=== PATIENT | female | born 1990 | race Caucasian/White ===

== ENCOUNTER 2017-05-16 16:42 | Inpatient (IN) | payer BC, OTHER ==
[2017-05-16 16:59] VITALS: BMI 36.1
--- NOTE | 2017-05-16 19:00 | PDOC ---
History of Present Illness - General Chief Complaint: Vaginal Sxs Stated Complaint: ABCESS History Source: Patient Exam Limitations: No Limitations - History of Present Illness Initial Comments: 05/16/17 18:54 Patient is a 26-year-old female, 7 months history of Bartholin's cyst presents with pain to vulva which started yesterday. Patient complaining of chills, tactile fever, patient reports that this pain that she is experiencing now is worse than the initial episode when she was drained. No urinary pain, no hematuria, no back pain. Past Medical History: Denies. Allergies: No known allergies Medications: None Family History: Non-contributory Social History: Denies smoking, alcohol use, or IVDU Vital signs on arrival are notable for pulse of 95. Review of Systems GENERAL/CONSTITUTIONAL: Tactile fever and chills. No weakness. No weight change. HEAD, EYES, EARS, NOSE AND THROAT: No change in vision. No ear pain or discharge. No sore throat. CARDIOVASCULAR: No chest pain or shortness of breath. RESPIRATORY: No cough, wheezing, or hemoptysis. GASTROINTESTINAL: No nausea, vomiting, diarrhea or constipation. No rectal bleeding. GENITOURINARY: No dysuria, frequency, or change in urination. GENITALIA: Right labia edema, visible inflammed bartholin cyst MUSCULOSKELETAL: No joint or muscle swelling or pain. No neck or back pain. SKIN AND BREASTS: No rash or easy bruising. NEUROLOGIC: No headache, vertigo, loss of consciousness, or loss of sensation. PSYCHIATRIC: No depression or anxiety. ENDOCRINE: No increased thirst. No abnormal weight change. HEMATOLOGIC/LYMPHATIC: No anemia, easy bleeding, or history of blood clots. ALLERGIC/IMMUNOLOGIC: No hives or skin allergy. No latex allergy. Physical Exam: GENERAL: The patient is awake, alert, and fully oriented, in no acute distress. HEAD: Normal with no signs of trauma. EYES: Pupils equal, round and reactive to light, extraocular movements intact, sclera anicteric, conjunctiva clear. ENT: Ears normal, nares patent, oropharynx clear without exudates. Moist mucous membranes. No uvula deviation NECK: Normal range of motion, supple without lymphadenopathy, JVD, or masses. LUNGS: Breath sounds equal, clear to auscultation bilaterally. No wheezes, and no crackles. HEART: Regular rate and rhythm, normal S1 and S2 without murmur, rub or gallop. ABDOMEN: Soft, nontender, normoactive bowel sounds. No guarding, no rebound. No masses. No bruising or abrasions GENITALIA: Large, inflamed right sided Bartholin's cyst. Equivalent to size of a golf ball. Surrounding area indurated, malodorous RECTAL : Guaiac negative, normal rectal tone. MUSCULOSKELETAL: Normal range of motion, no edema. No clubbing or cyanosis. No cords, erythema, or tenderness. No CVA Tenderness with fist. NEUROLOGICAL: Cranial nerves II through XII grossly intact. Normal speech, normal gait. SKIN: Warm, Dry, normal turgor, no rashes or lesions noted. 05/16/17 18:55 Past History - Past Medical History Allergies/Adverse Reactions: Allergies Allergy/AdvReac Type Severity Reaction Status Date / Time No Known Allergies Allergy Verified 05/16/17 17:01 Home Medications: Ambulatory Orders Cephalexin [Keflex] 500 mg PO BID #20 capsule 05/17/17 Ibuprofen [Motrin -] 600 mg PO TID #21 tablet 05/17/17 Thyroid Disease: No - Suicide/Smoking/Psychosocial Hx Smoking History: Never smoked Have you smoked in the past 12 months: No Information on smoking cessation initiated: No Hx Alcohol Use: No Drug/Substance Use Hx: No Substance Use Type: None *Physical Exam - Vital Signs Last Vital Signs Temp Pulse Resp BP Pulse Ox 98.5 F 95 H 18 124/60 100 05/16/17 16:55 05/16/17 16:55 05/16/17 16:55 05/16/17 16:55 05/16/17 16:55 ED Treatment Course - LABORATORY CBC & Chemistry Diagram: 05/19/17 08:00 05/19/17 08:00 Medical Decision Making - Medical Decision Making 05/16/17 19:00 A/P: Patient with large Bartholin's cyst, sent to main emergency department for higher level of care, patient stable for transfer. *DC/Admit/Observation/Transfer Diagnosis at time of Disposition: Vaginal cuff cellulitis, Abscess - Discharge Dispostion Disposition: HOME Condition at time of disposition: Stable - Prescriptions
--- NOTE | 2017-05-16 20:33 | PDOC ---
Attending Attestation - Resident Resident Name: Leela Glovern - HPI HPI: 05/16/17 20:27 Pt comes with 1 day of increased pain in her labia where she has a bartholin's cyst. Pt has had one in the past. Pt doesn't recall what side it was on , so it has likely been months ago. - Physicial Exam PE: 05/16/17 20:33 Pt has a labial abscess which is fluctuant on the right labia with extension to the right groin and right trigone area. Pt has exquisite tenderness of the area. Vaginal cellulitis 05/16/17 20:51 Pt is febrile to the touch. - Medical Decision Making 05/16/17 23:02 Pt will be admitted to the hospitalist; Dr. Magdaleno is aware of the patient and will come to see the patient to drain possible cyst/abscess tomorrow. Pt will be treated with IV clindamycin for the cellulitis. Labs done. Analgesia with morphine and tylenol for fever.
[2017-05-16] MEDS ORDERED: LIDOCAINE 1%/EPI 1:100000 (20 ML MULTI DOSE VIAL) ONE (20:36)
--- NOTE | 2017-05-16 20:41 | PDOC ---
History of Present Illness <Joan Carranza - Last Filed: 05/17/17 01:50> - General History Source: Patient Exam Limitations: No Limitations - History of Present Illness Initial Comments: Patient is a 26 year old female with history of a vaginal abscess and recent IUD insertion presenting with one day of right-sided vaginal pain. The pain is severe and constant. Endorses fever, chills, SHIPMAN, nausea, vaginal itching, discharge and burning on urination. Patient endorses a Bartholin cyst 10 months ago while that was drained, unable to remember which side. States this time is worse and she is unable to ambulate d/t pain. Denies being , has IUD and is not currently breast feeding. Denies shortness of breath, chest pain, abdominal pain, vomiting, diarrhea and dizziness. No PCP <Dashwan Glover - Last Filed: 05/21/17 03:31> - General Chief Complaint: Vaginal Sxs Stated Complaint: ABCESS Time Seen by Provider: 05/16/17 19:28 Past History <Joan Carranza - Last Filed: 05/17/17 01:50> - Past Medical History Thyroid Disease: No - Suicide/Smoking/Psychosocial Hx Smoking History: Never smoked Have you smoked in the past 12 months: No Information on smoking cessation initiated: No Hx Alcohol Use: No Drug/Substance Use Hx: No Substance Use Type: None <Dashawn Glover - Last Filed: 05/21/17 03:31> - Past Medical History Allergies/Adverse Reactions: Allergies Allergy/AdvReac Type Severity Reaction Status Date / Time No Known Allergies Allergy Verified 05/16/17 17:01 Home Medications: Ambulatory Orders Cephalexin [Keflex] 500 mg PO BID #20 capsule 05/17/17 Ibuprofen [Motrin -] 600 mg PO TID #21 tablet 05/17/17 Review of Systems - Review of Systems Able to Perform ROS?: Yes Comments:: GEN: Endorses fever, chills; Denies recent illness HEENTM: Denies sore throat, neck pain, changes in vision, changes in hearing, ear pain, tinnitus Respiratory: Denies cough, wheezing, shortness of breath Cardiac: Denies chest pain, palpitations, lightheadedness, diaphoresis ABD/GI: Endorses nausea; Denies abdominal pain, vomiting, diarrhea, constipation : Endorses vaginal pain, dysuria, vaginal itching, burning on urination; Denies increased frequency of urination Musculoskeletal: Denies pain and swelling of muscles and joints Integumentary: Endorses vaginal redness; Denies additional rashes or bruises Neurological: Endorses SHIPMAN; Denies weakness, dizziness, loss of consciousness, tingling, numbness Hematologic/Lymphatic: Denies anemia, easy bleeding, history of blood clots. All Other Systems Reviewed and Negative Is the patient limited Malaysian proficient: No <Dashawn Glover - Last Filed: 05/21/17 03:31> *Physical Exam - Vital Signs Last Vital Signs Temp Pulse Resp BP Pulse Ox 102.0 F H 95 H 18 124/60 100 05/16/17 20:25 05/16/17 16:55 05/16/17 16:55 05/16/17 16:55 05/16/17 16:55 <Joan Carranza - Last Filed: 05/17/17 01:50> - Vital Signs Last Vital Signs Temp Pulse Resp BP Pulse Ox 98.5 F 95 H 18 124/60 100 05/16/17 16:55 05/16/17 16:55 05/16/17 16:55 05/16/17 16:55 05/16/17 16:55 - Physical Exam Comments: GENERAL: AAOx3, obese, nourished and generally well appearing, NAD HEAD: NCAT EYES: PERRLA, EOMI, sclera anicteric, conjunctiva clear ENT: Auricles normal inspection, hearing grossly normal, nares patent, no nasal discharge, no congestion, oropharynx clear without exudates, MMM NECK: supple, normal ROM, no LAD, no JVD, no masses RESP: speaking in full sentences, lungs CTAB, symmetrical chest expansion, no respiratory distress HEART: RRR, normal S1-S2, no MRG, peripheral pulses normal and equal bilaterally ABDOMEN: soft, NTND, nlBSx4, no guarding, no rebound, no masses PELVIC: external exam significant for right-sided swelling and ttp of the labia majora with erythema of the labia majora and mons pubis. MUSCULOSKELETAL: no CVA Tenderness EXTREMITIES: normal inspection, moving all extremities, full ROM, strength 5/5, sensation grossly intact NEUROLOGICAL: CN II-XII grossly intact, normal speech, gait unassessed, no focal sensorimotor deficits SKIN: warm, dry, normal turgor, no rashes or lesions noted. <Dashawn Glover - Last Filed: 05/21/17 03:31> ED Treatment Course - LABORATORY CBC & Chemistry Diagram: 05/16/17 21:20 05/16/17 21:20 - ADDITIONAL ORDERS Additional order review: Laboratory Results 05/16/17 05/16/17 21:20 21:20 Sodium 134 L Potassium 3.7 Chloride 101 Carbon Dioxide 25 Anion Gap 8 BUN 7 Creatinine 0.5 L Creat Clearance w eGFR > 60 Random Glucose 87 Calcium 8.2 L Total Bilirubin 0.8 AST 18 ALT 24 Alkaline Phosphatase 111 Total Protein 6.8 Albumin 3.2 L Blood Type O POSITIVE Antibody Screen Negative 05/16/17 21:20 RBC 4.64 MCV 77.9 L MCHC 32.7 RDW 13.2 MPV 9.9 Neutrophils % No Result Required. Lymphocytes % No Result Required. - Medications Given in the ED: ED Medications Discontinued Medications Generic Name Dose Route Start Last Admin Trade Name Althea PRN Reason Stop Dose Admin Acetaminophen 650 mg 05/16/17 20:54 05/16/17 21:33 Tylenol - PO 05/16/17 20:55 650 mg ONCE ONE Administration Clindamycin HCl 600 mg 05/16/17 21:05 05/16/17 22:16 Cleocin - PO 05/16/17 21:06 600 mg ONCE ONE Administration Sodium Chloride 1,000 mls @ 1,000 mls/hr 05/16/17 20:54 05/16/17 21:33 Normal Saline - IV 05/16/17 21:53 1,000 mls/hr ASDIR STA Administration Gentamicin Sulfate/Sodium Chloride 100 mls @ 100 mls/hr 05/16/17 21:09 22:17 Garamycin 80 Mg Premixed Ivpb - IVPB 05/16/17 22:08 100 mls/hr ONCE ONE Administration Vancomycin HCl 1,000 mg/ 250 mls @ 250 mls/hr 05/16/17 23:42 05/17/17 00:22 Dextrose IVPB 05/17/17 00:41 250 mls/hr ONCE ONE Administration Protocol Morphine Sulfate 2 mg 05/16/17 20:58 05/16/17 21:34 Morphine Injection - IVPUSH 05/16/17 20:59 2 mg ONCE ONE Administration Morphine Sulfate 2 mg 05/16/17 23:54 05/17/17 00:22 Morphine Injection - IVPUSH 05/16/17 23:55 2 mg ONCE ONE Administration Morphine Sulfate 2 mg 05/17/17 00:09 05/17/17 00:50 Morphine Injection - IVPUSH 05/17/17 00:10 Not Given ONCE ONE <Joan Carranza - Last Filed: 05/17/17 01:50> - LABORATORY CBC & Chemistry Diagram: 05/19/17 08:00 05/19/17 08:00 <Dashawn Glover - Last Filed: 05/21/17 03:31> Medical Decision Making - Medical Decision Making 26 year old female with vaginal pain and swelling ands overlying erythema on on the mons pubis and a subjective fever, ddx includes but not limited to bartholin cyst, vaginal abscess, cellulites pain management abx preop labs fluids Consult central service tech +/- admission 05/16/17 21:22 Rectal temperature 102.2, blood cultures ordered 05/16/17 22:51 CBC WBC 17.1 K/mm3 (4.0-10.0) H 05/16/17 21:20 RBC 4.64 M/mm3 (3.60-5.2) 05/16/17 21:20 Hgb 11.8 GM/dL (10.7-15.3) 05/16/17 21:20 Hct 36.2 % (32.4-45.2) 05/16/17 21:20 MCV 77.9 fl (80-96) L 05/16/17 21:20 MCH 25.5 pg (25.7-33.7) L 05/16/17 21:20 MCHC 32.7 g/dl (32.0-36.0) 05/16/17 21:20 RDW 13.2 % (11.6-15.6) 05/16/17 21:20 Plt Count 195 K/MM3 (134-434) 05/16/17 21:20 MPV 9.9 fl (7.5-11.1) 05/16/17 21:20 Total Counted 100 05/16/17 21:20 Neutrophils % No Result Required. 05/16/17 21:20 Neutrophils % (Manual) 76 % (42.8-82.8) 05/16/17 21:20 Band Neuts % (Manual) 5 % (0-10) 05/16/17 21:20 Lymphocytes % No Result Required. 05/16/17 21:20 Lymphocytes % (Manual) 10 % (8-40) 05/16/17 21:20 Monocytes % (Manual) 7 % (3.8-10.2) 05/16/17 21:20 Eosinophils % (Manual) 2 % (0-4.5) 05/16/17 21:20 Platelet Estimate Adequate (NORMAL) 05/16/17 21:20 Morphology Comment 05/16/17 21:20 reviewed CMP Sodium 134 mmol/L (136-145) L 05/16/17 21:20 Potassium 3.7 mmol/L (3.5-5.1) 05/16/17 21:20 Chloride 101 mmol/L (98-107) 05/16/17 21:20 Carbon Dioxide 25 mmol/L (21-32) 05/16/17 21:20 Anion Gap 8 (8-16) 05/16/17 21:20 BUN 7 mg/dL (7-18) 05/16/17 21:20 Creatinine 0.5 mg/dL (0.55-1.02) L 05/16/17 21:20 Creat Clearance w eGFR > 60 (>60) 05/16/17 21:20 Random Glucose 87 mg/dL (74-106) 05/16/17 21:20 Calcium 8.2 mg/dL (8.5-10.1) L 05/16/17 21:20 Total Bilirubin 0.8 mg/dL (0.2-1.0) 05/16/17 21:20 AST 18 U/L (15-37) 05/16/17 21:20 ALT 24 U/L (12-78) 05/16/17 21:20 Alkaline Phosphatase 111 U/L (45-117) 05/16/17 21:20 Total Protein 6.8 g/dl (6.4-8.2) 05/16/17 21:20 Albumin 3.2 g/dl (3.4-5.0) L 05/16/17 21:20 Reviewed Patient is febrile with leukocytosis no primary followup and unable to ambulate. Needs admission for treatment of cellulites and eventual drainage of abscess Dr. Magdaleno contacted and will follow up with patient tomorrow. [facility] contacted regarding admission <Dashawn Gloevr - Last Filed: 05/21/17 03:31> *DC/Admit/Observation/Transfer - Discharge Dispostion Admit: Yes <Joan Carranza - Last Filed: 05/17/17 01:50> <Dashawn Glover - Last Filed: 05/21/17 03:31> Diagnosis at time of Disposition: Vaginal cuff cellulitis, Abscess - Discharge Dispostion Disposition: HOME Condition at time of disposition: Stable - Prescriptions
[2017-05-16] MEDS ORDERED: ACETAMINOPHEN 325 MG TABLET (FP) PO ONE (20:54)
[2017-05-16] MEDS ORDERED: SODIUM CHLORIDE 1,000 ML IV STA (20:54)
[2017-05-16] MEDS ORDERED: morphine CARPU-JECT 2 MG/1 ML DISP.SYRIN IVPUSH ONE ×2 (20:58→23:54)
[2017-05-16] MEDS ORDERED: CLINDAMYCIN HCL 300 MG CAPSULE PO ONE (21:05)
[2017-05-16] MEDS ORDERED: GENTAMICIN 80 MG PREMIXED IVPB 100 ML IVPB ONE ×2 (21:09→22:08)
[2017-05-16] MEDS ORDERED: ACETAMINOPHEN 325 MG TABLET (FP) ONE (21:12)
[2017-05-16] MEDS ORDERED: morphine CARPU-JECT 2 MG/1 ML DISP.SYRIN ONE (21:12)
[2017-05-16 21:31] LABS: MCH 25.5 pg (25.7-33.7); MCHC 32.7 g/dl (32.0-36.0); MEAN CELL VOLUME 77.9 fl (80-96); MEAN PLT VOLUME 9.9 fl (7.5-11.1); PLATELET COUNT 195 K/MM3 (134-434); RDW 13.2 % (11.6-15.6); WHITE BLOOD COUNT 17.1 K/mm3 (4.0-10.0)
[2017-05-16 21:55] LABS: ALBUMIN 3.2 g/dl (3.4-5.0); ANION GAP 8 (8-16); BILIRUBIN,TOTAL 0.8 mg/dL (0.2-1.0); CALCIUM 8.2 mg/dL (8.5-10.1); CO2 25 mmol/L (21-32); CREATININE 0.5 mg/dL (0.55-1.02); GLUCOSE,RANDOM 87 mg/dL (74-106); SGOT/AST 18 U/L (15-37); SGPT/ALT 24 U/L (12-78); TOT PROT 6.8 g/dl (6.4-8.2)
[2017-05-16 21:56] LABS: ALK PHOS 111 U/L (45-117)
[2017-05-16 21:57] LABS: PLATELET ESTIMATE ADEQUATE (NORMAL); TOTAL CELLS COUNTED 100
[2017-05-16] MEDS ORDERED: CLINDAMYCIN HCL 150 MG CAPSULE (FP) ONE (22:09)
[2017-05-16] MEDS ORDERED: VANCOMYCIN 1,000 MG in DEXTROSE 5%-WATER - 250 ML IVPB ONE (23:42)
[2017-05-16] MEDS ORDERED: VANCOMYCIN 1 GRAM (PRE-DOCKED) 250 ML IVPB ONE (23:52)
[2017-05-17] MEDS ORDERED: morphine CARPU-JECT 2 MG/1 ML DISP.SYRIN IVPUSH ONE (00:09)
[2017-05-17] MEDS ORDERED: morphine CARPU-JECT 2 MG/1 ML DISP.SYRIN ONE (00:12)
--- NOTE | 2017-05-17 01:41 | PN ---
Teaching Attending Note Name of Resident: Arlin Epstein ATTENDING PHYSICIAN STATEMENT I saw and evaluated the patient. CHart, data, imaging reviewed. I reviewed the resident's note and discussed the case with the resident. I agree with the resident's findings and plan as documented. SUBJECTIVE: 26-year-old female, 5 months, with PMHx of Bartholin cyst which became infected about one yr ago, now returns with right labial swelling and pain for the past 1-2 days. She reports episode of fever and chills. Thinks that she may have had ingrown hair. S/p vancomycin, gentamicin, and clindamycin in ER. Reports negative HIV test during last . OBJECTIVE: Last Vital Signs Temp Pulse Resp BP Pulse Ox 102.0 F H 95 H 18 124/60 100 05/16/17 20:25 05/16/17 16:55 05/16/17 16:55 05/16/17 16:55 05/16/17 16:55 heent -no sinus tenderness, no scleral pallor neck -supple, no masses cv s1+s2+ RRR chest- cta b/l abdomen -right and left lower quadrant tenderness ext - no edema noted Abnormal Lab Results 05/16/17 05/16/17 21:20 21:20 WBC 17.1 H MCV 77.9 L MCH 25.5 L Sodium 134 L Creatinine 0.5 L Calcium 8.2 L Albumin 3.2 L ASSESSMENT AND PLAN: #Sepsis 2/2 to infected bartholin cyst and surrounding cellulitis. Should r/o endometritis S/p vancomycin, gentamicin, and clindamycin in ER. -admit to med/surg -blood cx x2 -lactate level -IV fluid hydration -vancomycin 1g iv q12hrs -unasyn 3g iv q6hrs -IVF hydration -OBGYN consult #R/o GC/chlamydia as patient c/o vaginal yellowish discharge -send urine GC/chlamydia NAAT -Pelvic U/S to evaluate for PID -UA, urine cx -HIV serology #DVT ppx -SCDs #diet regular diet
[2017-05-17] MEDS ORDERED: ACETAMINOPHEN 325 MG TABLET (FP) PO ONE (02:33)
[2017-05-17] MEDS ORDERED: ACETAMINOPHEN 325 MG TABLET (FP) ONE (02:34)
--- NOTE | 2017-05-17 03:03 | HP ---
CHIEF COMPLAINT: bartholin's cyst PCP: none HISTORY OF PRESENT ILLNESS: This is a 26 year old female who presents to the hospital complaining of swelling and pain in her labia on right side that started yesterday. She reports that yesterday her complaints were associated with nausea and headache. The pain in severe, located in vaginal and pubic area, constant and she also experience itching and dysuria. The pt has fever. She states that recently she had IUD inserted and she notivced more vaginlal discharge. She denies recent travel, sick contacts, animal contacts. She had Bartholin's cyst 10 months ago that was drained and she had catheter left after the procedure. This time she states that her infection is much worse. She denies SOB, chest pain, vomiting, diarhea, dizziness. ER course was notable for: (1)WBC 17 (2)Fever-rectal 102 (3)Gentamycin, Clindamycin and Vanco Recent Travel: PAST MEDICAL HISTORY: Bartholin's cyst 10 months ago PAST SURGICAL HISTORY: c section in aug 2016 Social History: Smoking:no Alcohol:occasionally Drugs: no Family History: Father: healthy Mother: healthy Allergies No Known Allergies Allergy (Verified 05/16/17 17:01) HOME MEDICATIONS: Home Medications Medication Instructions Recorded NK [No Known Home Medication] 05/16/17 REVIEW OF SYSTEMS CONSTITUTIONAL: Absent: fever, chills, diaphoresis, generalized weakness, malaise, loss of appetite, weight change HEENT: Absent: rhinorrhea, nasal congestion, throat pain, throat swelling, difficulty swallowing, mouth swelling, ear pain, eye pain, visual changes CARDIOVASCULAR: Absent: chest pain, syncope, palpitations, irregular heart rate, lightheadedness , peripheral edema RESPIRATORY: Absent: cough, shortness of breath, dyspnea with exertion, orthopnea, wheezing, stridor, hemoptysis GASTROINTESTINAL:abdominal pain, Absent: abdominal distension, nausea, vomiting, diarrhea, constipation, melena, hematochezia GENITOURINARY: dysuria, genital pain Absent: frequency, urgency, hesitancy, hematuria, flank pain, MUSCULOSKELETAL: Absent: myalgia, arthralgia, joint swelling, back pain, neck pain SKIN: Absent: rash, itching, pallor HEMATOLOGIC/IMMUNOLOGIC: Absent: easy bleeding, easy bruising, lymphadenopathy, frequent infections ENDOCRINE: Absent: unexplained weight gain, unexplained weight loss, heat intolerance, cold intolerance NEUROLOGIC: Absent: headache, focal weakness or paresthesias, dizziness, unsteady gait, seizure, mental status changes, bladder or bowel incontinence PSYCHIATRIC: Absent: anxiety, depression, suicidal or homicidal ideation, hallucinations. PHYSICAL EXAMINATION GENERAL: Awake, alert, and fully oriented, in no acute distress. HEAD: Normal with no signs of trauma. EYES: Pupils equal, round and reactive to light, extraocular movements intact, sclera anicteric, conjunctiva clear. No lid lag. EARS, NOSE, THROAT: Ears normal, nares patent, oropharynx clear without exudates. Moist mucous membranes. NECK: Normal range of motion, supple without lymphadenopathy, JVD, or masses. LUNGS: Breath sounds equal, clear to auscultation bilaterally. No wheezes, and no crackles. No accessory muscle use. HEART: Regular rate and rhythm, normal S1 and S2 without murmur, rub or gallop. ABDOMEN: Obese, soft, tender in lower abdomen, + guarding in lower abdomen, not distended, normoactive bowel sounds, no rebound, no masses. No hepatomegaly or splenomegaly. MUSCULOSKELETAL: Normal range of motion at all joints. No bony deformities or tenderness. No CVA tenderness. UPPER EXTREMITIES: 2+ pulses, warm, well-perfused. No cyanosis. No clubbing. No peripheral edema. LOWER EXTREMITIES: 2+ pulses, warm, well-perfused. No calf tenderness. No peripheral edema. NEUROLOGICAL: Cranial nerves II-XII intact. Normal speech. Normal gait. PSYCHIATRIC: Cooperative. Good eye contact. Appropriate mood and affect. SKIN: Warm, dry, normal turgor, no rashes or lesions noted, normal capillary refill. ASSESSMENT/PLAN: This is a 26 year old female whith a PMH of BArtholin's cyst who presents to the hospital complaining of swelling and pain in her genital area. She is admitted for sepsis due Bartholin cyst/cellulitis. sepsis due Bartholin cyst/cellulitis. -sepsis protocol initiated -urine cultures, blood cultures, UA -IVF -Gentamycin, Vancoomycin and Clindamycin given in Ed -we gave her Unasyn 3 q6h and Vancomycin 1g -consulted ID -will follow labwork -OBGYN consulted Lower abdominal pain -r/o endometritis, ovarian cyst., PUD -keep NPO for now -ordered Chlamydia, Gonnorhea, HIV Leukocytosis: WBC 17, due to sepsis will monitor DVT PPX: -Heparin SQ SCDs F/E/N NS/no changes/NPO Discposition: med surg Visit type - Emergency Visit Emergency Visit: Yes ED Registration Date: 05/17/17 Care time: The patient presented to the Emergency Department on the above date and was hospitalized for further evaluation of their emergent condition. - New Patient This patient is new to me today: Yes Date on this admission: 05/17/17 - Critical Care Critical Care patient: No
[2017-05-17 04:27] LABS: BASOPHIL 0.3 % (0-2.0); EOSINOPHIL 3.3 % (0-4.5); MCH 25.5 pg (25.7-33.7); MCHC 32.8 g/dl (32.0-36.0); MEAN CELL VOLUME 77.9 fl (80-96); MEAN PLT VOLUME 9.7 fl (7.5-11.1); NEUTROPHILS 82.3 % (42.8-82.8); PLATELET COUNT 175 K/MM3 (134-434); RDW 13.1 % (11.6-15.6); WHITE BLOOD COUNT 14.2 K/mm3 (4.0-10.0)
[2017-05-17] MEDS: AMPICILLIN NA/SULBACTAM NA 3 GM in SODIUM CHLORIDE 100 ML IVPB SCH ×4 (05:00→20:56)
[2017-05-17 05:19] LABS: ALBUMIN 2.8 g/dl (3.4-5.0); ALK PHOS 112 U/L (45-117); ANION GAP 11 (8-16); BILIRUBIN,TOTAL 0.7 mg/dL (0.2-1.0); CALCIUM 8.1 mg/dL (8.5-10.1); CO2 22 mmol/L (21-32); CREATININE 0.4 mg/dL (0.55-1.02); GLUCOSE,RANDOM 102 mg/dL (74-106); SGOT/AST 21 U/L (15-37); SGPT/ALT 25 U/L (12-78); TOT PROT 5.9 g/dl (6.4-8.2)
--- NOTE | 2017-05-17 07:10 | CON.OBG ---
Consult Consult Specialty:: SPANISH INSTRUCTOR Reason for Consultation:: RIGHT BARTHOLINS - History of Present Illness Chief Complaint: 26 Y/O WITH RIGHT BARTHOLINS COMES WITH INCREASING PIAN. States that over last 2 days has been having increasing pain. Has had a barthloins about 10 months ago. Arrived in ER with pain and white count of 17k and now down to 14 k. Pt is on abx and with dropping white count and afebrile will admit fro drainage. History of Present Illness: see above - History Source History Provided By: Patient Limitations to Obtaining History: No Limitations - Past Medical History SLITTER SERVICE AND SETTER: No: Alzheimer's, CVA, Dementia, Migraine, Multiple Sclerosis, Peripheral Neuropathy, Parkinson's, Seizure, Syncope, TIA, Vertigo, Other Pulmonary: No: Asthma, Bronchitis, Cancer, COPD, O2 Dependent, Pneumonia, Previously Intubated, Pulmonary Embolus, Pulmonary Fibrosis, Sleep Apnea, Other Gastrointestinal: No: Ascites, Cancer, Constipation, Crohn's Disease, Diverticulitis, Diverticulosis, Esophageal Varices, Gastritis, GERD, GI Bleed, Hemorrhoids, Hiatal Hernia, Inflamatory Bowel Disease, Irritable Bowel Disease, Pancreatitis, Peptic Ulcer Disease, Ulcerative Colitis, Other Hepatobiliary: No: Cirrhosis, Cholelithiasis, Cholecystitis, Choledocholithiasis , Hepatitis A, Hepatitis B, Hepatitis C, Other Renal/: No: Renal Failure, Renal Inusuff, BPH, Cancer, Hematuria, Hemodialysis , Neurogenic Bladder, Renal Calculi, UTI, Other ...: No Heme/Onc: No: Anemia, B12 Deficiency, Bleeding Disorder, Cancer, Current Chemotherapy, Current Radiation Therapy, Hemochromatosis, Hypercoaguable State, Myeloproliferative Synd, Sickle Cell Disease, Sickle Cell Trait, Thrombocytopenia, Other Infectious Disease: No: AIDS, C-Diff, Herpes Zoster, HIV, MRSA, STD's, Tuberculosis, VREF, Other Psych: No: Addictions, Anxiety, Bipolar, Depression, Panic, Psychosis, Schizophrenia, Other - Past Surgical History Past Surgical History: No: None, AAA Repair, AICD, Amputation, Appendectomy, Arthrosocopy, AV Fistula/Graft, Bariatric Surgery, Breast Biopsy, Bypass, CABG, Carotid Endarterectomy, Cataract Removal, Cholecystectomy, Colectomy, Colonoscopy, Colostomy, Craniotomy, , Cystectomy, Hernia Repair, Hysterectomy, Ileal Conduit, Ileosotomy, Joint Replacement, Kidney Transplant, Laminectomy, Liver Transplant, Mastectomy, Nephrectomy, Oopherectomy, Orchiectomy, Permanent Pacemaker, Prostatectomy, Splenectomy, Stent, Thoracotomy , TURP, Tonsillectomy, Tubal Ligation, Upper Endoscopy, Valve Replacement, Vasectomy, Vein Stripping/Ligation - Alcohol/Substance Use Hx Alcohol Use: No History of Substance Use: denies: None, Cocaine, Heroin, Marijuana, Prescription , Tranquilizers - Smoking History Smoking history: Never smoked Have you smoked in the past 12 months: No Home Medications - Allergies Allergies/Adverse Reactions: Allergies Allergy/AdvReac Type Severity Reaction Status Date / Time No Known Allergies Allergy Verified 05/16/17 17:01 - Home Medications Home Medications: Ambulatory Orders NK [No Known Home Medication] 05/16/17 Review of Systems - Review of Systems Constitutional: reports: No Symptoms Eyes: reports: No Symptoms HENT: reports: No Symptoms Neck: reports: No Symptoms Cardiovascular: reports: No Symptoms Respiratory: reports: No Symptoms Gastrointestinal: reports: No Symptoms Genitourinary: reports: No Symptoms Breasts: reports: No Symptoms Reported Musculoskeletal: reports: No Symptoms Integumentary: reports: No Symptoms Neurological: reports: No Symptoms Endocrine: reports: No Symptoms Hematology/Lymphatic: reports: No Symptoms Psychiatric: reports: No Symptoms Physical Exam-SPANISH INSTRUCTOR Vital Signs: Vital Signs Temperature 98.8 F 05/17/17 06:00 Pulse Rate 104 H 05/17/17 06:00 Respiratory Rate 18 05/17/17 06:00 Blood Pressure 101/57 05/17/17 06:00 O2 Sat by Pulse Oximetry (%) 96 05/17/17 05:17 Constitutional: Yes: Well Nourished Eyes: Yes: WNL HENT: Yes: WNL Neck: Yes: WNL Cardiovascular: Yes: WNL Respiratory: Yes: WNL Gastrointestinal: Yes: WNL (3-4 cm right bartholins cyst with rt labial induration) Musculoskeletal: Yes: WNL Extremities: No: WNL, Amputation, Calf Tenderness, Cold, Cool, Cyanosis, Deformity, Delayed Capillary Refill, Erythema, External Rotation, Internal Rotation, Pallor, Shortened, Other Labs: CBC, BMP 05/17/17 04:08 05/17/17 04:08 Assessment/Plan as above continue abx oob prep for OR
[2017-05-17 07:11] LABS: INR 1.08 (0.82-1.09); PROTHROMBIN TIME (PATIENT) 12.2 SEC (9.98-11.88)
[2017-05-17] MEDS ORDERED: morphine CARPU-JECT 2 MG/1 ML DISP.SYRIN IVPUSH PRN (07:15)
[2017-05-17] MEDS ORDERED: morphine CARPU-JECT 10 MG/1 ML DISP.SYRIN ONE (07:22)
[2017-05-17 07:28] LABS: HIV 1 & 2 AB NEGATIVE; HIV 1 AGp24 NEGATIVE
[2017-05-17] MEDS ORDERED: PROPOFOL 20 ML ONE (09:39)
[2017-05-17] MEDS ORDERED: MIDAZOLAM HCL 2 MG/2 ML SINGLE DOSE VIAL ONE (09:39)
[2017-05-17] MEDS ORDERED: HEPARIN NA (PORCINE) 5,000 UNITS/ML 1ML VIAL SQ SCH (10:00)
[2017-05-17] MEDS ORDERED: ONDANSETRON 4 MG/2 ML VIAL IVPUSH PRN (10:10)
--- NOTE | 2017-05-17 11:02 | EKG ---
Test Reason : Blood Pressure : / mmHG Vent. Rate : 102 BPM Atrial Rate : 102 BPM P-R Int : 152 ms QRS Dur : 088 ms QT Int : 346 ms P-R-T Axes : 063 072 027 degrees QTc Int : 450 ms SINUS TACHYCARDIA OTHERWISE NORMAL ECG NO PREVIOUS ECGS AVAILABLE Confirmed by JENNIFER SHELBY MD ([id number]) on 05/17/2017 11:02:17 AM Referred By: Confirmed By:JENNIFER SHELBY MD
[2017-05-17] MEDS: LACTATED RINGERS SOLUTION 1,000 ML IV SCH ×2 (11:48→16:00)
--- NOTE | 2017-05-17 13:11 | PN ---
Progress Note (short form) - Note Progress Note: ID Consult dictated S/P I&D Bartholin cyst Cellulitis R labia/ suprapubic area Fever/ leukocytosis Pending c/s empiric unasyn/ vancomycin
[2017-05-17] MEDS: oxyCODONE HCL 5 MG TABLET PO PRN ×3 (13:16→20:53)
--- NOTE | 2017-05-17 13:32 | CONS ---
DATE OF CONSULTATION: 05/17/2017 The patient is a 26-year-old healthy female evaluated for fever and leukocytosis. She presented to the hospital with complaints of right labial pain, fever, and chills. She was found to have a right labial abscess. The patient was taken to the operating room, where incision and drainage was performed of a Bartholin cyst. Her course was complicated by fever to 102 and white blood cell count of 17,000. At the present time, she complains of right labial and suprapubic pain. She denies history of serious soft tissue infection requiring hospitalization or history of MRSA infection. PAST MEDICAL HISTORY: Positive for Bartholin cyst 10 months ago, which did not require surgical drainage; history of IUD placement. PAST SURGICAL HISTORY: Status post section. No known allergies. MEDICATIONS: Vancomycin, gentamicin, clindamycin. SOCIAL HISTORY: She lives at home. Nonsmoker, nondrinker. She is HIV-negative. SYSTEMS REVIEW: Neurologic: No loss of consciousness, seizure activity, focal weakness. Cardiac: Negative chest pain or palpitations. Respiratory: Negative cough or sputum production. Gastrointestinal: Negative vomiting or diarrhea. Genitourinary: As per HPI. LABORATORY DATA: White count on admission 17,000, presently 14.2; hematocrit 33.9; platelet count 175. BUN 5, creatinine 0.4. Cultures are pending. Chest x-ray: Negative. HIV test negative. PHYSICAL EXAMINATION: General: She is awake and alert, in moderate distress secondary to labial pain. Vital Signs: Temperature 100, temperature maximum 102, blood pressure 113/62, pulse 103 and regular, respirations 20/min. HEENT: Sclerae anicteric. Heart Sounds: S1, S2. Lungs: Clear. Abdomen: Soft and nontender. Extremities: Negative for edema. Genitalia: There is swelling and erythema of the right labia, extending to the suprapubic area. It is warm and tender to touch. IMPRESSION: 1. Status post incision and drainage of Bartholin cyst. 2. Cellulitis of the labia and suprapubic area. 3. Fever, leukocytosis, possible sepsis secondary to skin source. Pending cultures, empiric antibiotic coverage with Unasyn 3 g IV piggyback every 6 hours and vancomycin 1 g IV piggyback every 12 hours. Continue local wound care and analgesics. Thank you for the kind referral. JENNIFER JONES M.D. [id number]
[2017-05-17] MEDS: ACETAMINOPHEN 325 MG TABLET (FP) PO PRN ×2 (14:33→19:23)
[2017-05-17] MEDS: VANCOMYCIN 1,000 MG in DEXTROSE 5%-WATER - 250 ML IVPB SCH (14:36)
[2017-05-18] MEDS: VANCOMYCIN 1,000 MG in DEXTROSE 5%-WATER - 250 ML IVPB SCH ×2 (01:03→14:15)
[2017-05-18] MEDS: AMPICILLIN NA/SULBACTAM NA 3 GM in SODIUM CHLORIDE 100 ML IVPB SCH ×4 (03:09→21:18)
[2017-05-18] MEDS: ACETAMINOPHEN 325 MG TABLET (FP) PO PRN ×3 (03:18→11:48)
[2017-05-18] MEDS: oxyCODONE HCL 5 MG TABLET PO PRN ×5 (03:19→22:22)
[2017-05-18 08:33] LABS: BASOPHIL 0.5 % (0-2.0); EOSINOPHIL 5.5 % (0-4.5); MCH 25.1 pg (25.7-33.7); MCHC 32.1 g/dl (32.0-36.0); MEAN CELL VOLUME 78.3 fl (80-96); MEAN PLT VOLUME 10.3 fl (7.5-11.1); NEUTROPHILS 68.9 % (42.8-82.8); PLATELET COUNT 177 K/MM3 (134-434); RDW 13.1 % (11.6-15.6); WHITE BLOOD COUNT 11.2 K/mm3 (4.0-10.0)
[2017-05-18 08:44] LABS: ANION GAP 8 (8-16); CALCIUM 8.5 mg/dL (8.5-10.1); CO2 26 mmol/L (21-32); GLUCOSE,RANDOM 77 mg/dL (74-106)
[2017-05-18 08:48] LABS: CREATININE 0.4 mg/dL (0.55-1.02)
[2017-05-18] MEDS: LACTATED RINGERS SOLUTION 1,000 ML IV SCH (10:15)
--- NOTE | 2017-05-18 11:20 | PN ---
Progress Note (short form) - Note Progress Note: wbc is trnding down and pain is minmal. SHe is ok for discharge home and needs fu in 2 days for packing removal
--- NOTE | 2017-05-18 11:37 | PN ---
Teaching Attending Note Name of Resident: Edy Marie ATTENDING PHYSICIAN STATEMENT I saw and evaluated the patient. I reviewed the resident's note and discussed the case with the resident. I agree with the resident's findings and plan as documented. SUBJECTIVE: OBJECTIVE: Vital Signs Period Temp Pulse Resp BP Sys/Amador Pulse Ox Last 24 Hr 98.0 F-101.9 F 80-100 20-20 101-112/49-70 Current Medications Generic Name Dose Route Start Last Admin Trade Name Freq PRN Reason Stop Dose Admin Acetaminophen 650 mg 05/17/17 14:13 05/18/17 08:06 Tylenol - PO 650 mg Q4H PRN Administration FEVER OR PAIN Lactated Ringer's 1,000 mls @ 125 mls/hr 05/17/17 10:15 05/18/17 10:15 Lactated Ringers Solution IV Not Given ASDIR ROGER Ampicillin Sodium/Sulbactam 100 mls @ 200 mls/hr 05/17/17 15:00 05/18/17 08:09 Sodium 3 gm/ Sodium Chloride IVPB 200 mls/hr Q6H-IV ROGER Administration Vancomycin HCl 1,000 mg/ 250 mls @ 200 mls/hr 05/17/17 14:00 05/18/17 01:03 Dextrose IVPB 200 mls/hr BID@0200,1400 ROGER Administration Oxycodone HCl 5 mg 05/17/17 10:07 05/18/17 08:07 Roxicodone - PO 5 mg Q4H PRN Administration PAIN ASSESSMENT AND PLAN:
[2017-05-18] MEDS ORDERED: ONDANSETRON 4 MG/2 ML VIAL ONE (11:44)
--- NOTE | 2017-05-18 11:54 | PN ---
Physical Exam: SUBJECTIVE: Patient is 26 year old female presented with Bartholin cyst associated with fever, chills , pain , and right labia majora cellulitis. S/P I& D with empiric Unasyn/vancomycin treatement. She had Bartholin cyst 10 months ago but as sever as this one. I saw her today morning , she complains of pain in genital area, with some headache and nausea.She had a fever of 102 over night. She denies any , D/C, SOB , CP or dizziness . OBJECTIVE: Vital Signs Period Temp Pulse Resp BP Sys/Amador Pulse Ox Last 24 Hr 98.0 F-101.9 F 80-100 20-20 101-112/49-70 GENERAL: The patient is awake, alert, and fully oriented, in no acute distress. HEAD: Normal with no signs of trauma. EYES: sclera anicteric, conjunctiva clear. ENT: moist mucous membranes. LUNGS: Breath sounds equal, clear to auscultation bilaterally, no wheezes, no crackles, no accessory muscle use. HEART: sinus tachycardic, S1, S2 without murmur, rub or gallop. ABDOMEN: Soft, nontender, nondistended, normoactive bowel sounds, no guarding, no rebound, B/L inguinal lymph adenoapathy EXTREMITIES: warm, well-perfused, no edema. NEUROLOGICAL: good mentation PSYCH: Normal mood, normal affect. SKIN: Warm, dry, no rashes or lesions noted, erythema in R labia majora and supra pubic. Laboratory Results - last 24 hr 05/18/17 05/18/17 07:20 07:20 WBC 11.2 H RBC 4.26 Hgb 10.7 Hct 33.4 MCV 78.3 L MCH 25.1 L MCHC 32.1 RDW 13.1 Plt Count 177 MPV 10.3 Neutrophils % 68.9 Lymphocytes % 18.7 D Monocytes % 6.4 Eosinophils % 5.5 H Basophils % 0.5 Sodium 140 Potassium 4.0 Chloride 106 Carbon Dioxide 26 Anion Gap 8 BUN 3 L D Creatinine 0.4 L Random Glucose 77 D Calcium 8.5 Active Medications Generic Name Dose Route Start Last Admin Trade Name Freq PRN Reason Stop Dose Admin Acetaminophen 650 mg 05/17/17 14:13 05/18/17 11:48 Tylenol - PO 650 mg Q4H PRN Administration FEVER OR PAIN Lactated Ringer's 1,000 mls @ 125 mls/hr 05/17/17 10:15 05/18/17 10:15 Lactated Ringers Solution IV Not Given ASDIR ROGER Ampicillin Sodium/Sulbactam 100 mls @ 200 mls/hr 05/17/17 15:00 05/18/17 08:09 Sodium 3 gm/ Sodium Chloride IVPB 200 mls/hr Q6H-IV ROGER Administration Vancomycin HCl 1,000 mg/ 250 mls @ 200 mls/hr 05/17/17 14:00 05/18/17 01:03 Dextrose IVPB 200 mls/hr BID@0200,1400 ROGER Administration Oxycodone HCl 5 mg 05/17/17 10:07 05/18/17 11:49 Roxicodone - PO 5 mg Q4H PRN Administration PAIN Microbiology 05/17/17 04:08 Blood - Peripheral Venous Blood Culture - Preliminary NO GROWTH OBTAINED AFTER 24 HOURS, INCUBATION TO CONTINUE FOR 4 DAYS. 05/17/17 04:08 Blood - Peripheral Venous Blood Culture - Preliminary NO GROWTH OBTAINED AFTER 24 HOURS, INCUBATION TO CONTINUE FOR 4 DAYS. 05/16/17 03:18 Blood - Peripheral Venous Blood Culture - Preliminary NO GROWTH OBTAINED AFTER 24 HOURS, INCUBATION TO CONTINUE FOR 4 DAYS. 05/16/17 21:31 Blood - Peripheral Venous Blood Culture - Preliminary NO GROWTH OBTAINED AFTER 24 HOURS, INCUBATION TO CONTINUE FOR 4 DAYS. CBC, BMP 05/18/17 07:20 05/18/17 07:20 ASSESSMENT/PLAN: This is a 26 year old female whith a PMH of Bartholin's cyst who presents to the hospital complaining of swelling and pain in her genital area. She is admitted for sepsis due Bartholin cyst/cellulitis. #sepsis d 2/2 Bartholin cyst/cellulitis. * sepsis protocol initiated * urine cultures, blood cultures, UA * IVF * Gentamycin, Vancoomycin and Clindamycin given in Ed * we gave her Unasyn 3 q6h and Vancomycin 1g * S/P I&D Bartholin cyst * consulted ID: continue empiric IV unasyn/ vancomycin * Blood culture no growth after 24 hours * OBGYN consulted * Motrin for headache unspecified * will discharged tomorrow with PO Augmentin if afebrile for 24hours per ID . #Lower abdominal pain * r/o endometritis, ovarian cyst., PUD * advance her diet to regular * Chlamydia, Gonnorhea, HIV, all negative * Serum test negative # Nausea, likely 2/2 infection * Metoclopramide PO for nausea * #Leukocytosis: * WBC 17, due to sepsis trend to 14.1 * will monitor # PPX: * DVT :SCDs both legs * GI :no need for now #F/E/N on no fluids /no changes/regular diet #Discposition: * med surg * will be discharged with Augmentin PO if no febrile for 24 hours. Visit type - Emergency Visit Emergency Visit: Yes ED Registration Date: 05/17/17 Care time: The patient presented to the Emergency Department on the above date and was hospitalized for further evaluation of their emergent condition. - New Patient This patient is new to me today: No - Critical Care Critical Care patient: No
[2017-05-18] MEDS: IBUPROFEN 400 MG TABLET (FP) PO PRN ×2 (15:38→22:21)
--- NOTE | 2017-05-18 15:44 | PN ---
Progress Note, Physician History of Present Illness: C/O R labial pain Temps, WBC improved Blood c/s no growth - Current Medication List Current Medications: Active Medications Acetaminophen (Tylenol -) 650 mg PO Q4H PRN PRN Reason: FEVER OR PAIN Last Admin: 05/18/17 11:48 Dose: 650 mg Lactated Ringer's (Lactated Ringers Solution) 1,000 mls @ 125 mls/hr IV ASDIR ROGER Last Admin: 05/18/17 10:15 Dose: Not Given Ampicillin Sodium/Sulbactam (Sodium 3 gm/ Sodium Chloride) 100 mls @ 200 mls/ hr IVPB Q6H-IV ROGER Last Admin: 05/18/17 08:09 Dose: 200 mls/hr Vancomycin HCl 1,000 mg/ (Dextrose) 250 mls @ 200 mls/hr IVPB BID@0200,1400 ROGER Last Admin: 05/18/17 14:15 Dose: 200 mls/hr Ibuprofen (Motrin -) 400 mg PO Q4H PRN PRN Reason: FEVER Last Admin: 05/18/17 15:38 Dose: 400 mg Metoclopramide HCl (Reglan -) 10 mg PO ACHS ROGER Oxycodone HCl (Roxicodone -) 5 mg PO Q4H PRN PRN Reason: PAIN Last Admin: 05/18/17 15:38 Dose: 5 mg - Objective Vital Signs: Vital Signs Temperature 99.2 F 05/18/17 14:00 Pulse Rate 80 05/18/17 14:00 Respiratory Rate 20 05/18/17 14:00 Blood Pressure 104/60 05/18/17 14:00 O2 Sat by Pulse Oximetry (%) 100 05/17/17 11:00 Constitutional: Yes: No Distress Eyes: Yes: Conjunctiva Clear Cardiovascular: Yes: Regular Rate and Rhythm, S1, S2 Respiratory: Yes: CTA Bilaterally Gastrointestinal: Yes: Normal Bowel Sounds, Soft. No: Tenderness Genitourinary: Yes: Other (+ R labial and suprapubic erythema/ swelling) Labs: CBC, BMP 05/18/17 07:20 05/18/17 07:20 INR, PTT INR 1.08 (0.82-1.09) 05/17/17 06:15 Assessment/Plan S/P I&D Bartholin cyst Cellulitis R labia/ suprapubic area Fever/ leukocytosis- improved Continue vancomycin / unasyn Hopefully switch to po next 24hr
[2017-05-18] MEDS: METOCLOPRAMIDE HCL 10 MG TABLET (FP) PO SCH ×2 (17:01→21:18)
[2017-05-19] MEDS: VANCOMYCIN 1,000 MG in DEXTROSE 5%-WATER - 250 ML IVPB SCH (01:21)
[2017-05-19] MEDS: AMPICILLIN NA/SULBACTAM NA 3 GM in SODIUM CHLORIDE 100 ML IVPB SCH ×2 (02:46→09:41)
[2017-05-19] MEDS: oxyCODONE HCL 5 MG TABLET PO PRN ×3 (02:47→14:14)
[2017-05-19] MEDS: IBUPROFEN 400 MG TABLET (FP) PO PRN ×3 (02:47→14:11)
--- NOTE | 2017-05-19 06:45 | DS ---
Physical Exam: SUBJECTIVE: Patient seen and examined at bedside. she complain of pain but controlled with pain killer. She denies any fever, chills, N/V/D/C. Patient is stable to go home with one week oral antibiotic. OBJECTIVE: Vital Signs Period Temp Pulse Resp BP Sys/Amador Pulse Ox Last 24 Hr 98.2 F-99.2 F 71-95 20-20 104-113/49-70 PHYSICAL EXAM GENERAL: The patient is awake, alert, and fully oriented, in no acute distress. HEAD: Normal with no signs of trauma. EYES: PERRL, extraocular movements intact, sclera anicteric, conjunctiva clear. ENT: Ears normal, nares patent, oropharynx clear without exudates, moist mucous membranes. NECK: Trachea midline, full range of motion, supple. LUNGS: Breath sounds equal, clear to auscultation bilaterally, no wheezes, no crackles, no accessory muscle use. HEART: Regular rate and rhythm, S1, S2 without murmur, rub or gallop. ABDOMEN: Soft, nontender, nondistended, normoactive bowel sounds, no guarding, no rebound, no hepatosplenomegaly, no masses. EXTREMITIES: 2+ pulses, warm, well-perfused, no edema. NEUROLOGICAL: Cranial nerves II through XII grossly intact. Normal speech, gait not observed. PSYCH: Normal mood, normal affect. SKIN: Warm, dry, normal turgor, no rashes or lesions noted. LABS Laboratory Results - last 24 hr 05/18/17 05/18/17 07:20 07:20 WBC 11.2 H RBC 4.26 Hgb 10.7 Hct 33.4 MCV 78.3 L MCH 25.1 L MCHC 32.1 RDW 13.1 Plt Count 177 MPV 10.3 Neutrophils % 68.9 Lymphocytes % 18.7 D Monocytes % 6.4 Eosinophils % 5.5 H Basophils % 0.5 Sodium 140 Potassium 4.0 Chloride 106 Carbon Dioxide 26 Anion Gap 8 BUN 3 L D Creatinine 0.4 L Random Glucose 77 D Calcium 8.5 HOSPITAL COURSE: Date of Admission:05/17/17 Date of Discharge: 05/19/17 26yo F with is 5months presented with labia majora swelling and pain assoc with fevers found to be septic due to bartholin cyst she was found to have sepsis due to R labia majora bartholin cyst- s/p I&D on . no cx was sent from surgery. BCx negative. clinically improved. leukocytosis resolved, afebrile. on Vanco and unasyn. ID switch her to keflex 500 mg PO BID. d/w pt about proper hygiene and rinsing with gregorio-bottle after urination. stressed importance with following up with her own STRIKE OUT MACHINE OPERATOR, which is her choice to ensure infection is continuing to resolve. patient is stable and discharged home . Minutes to complete discharge: 40 Discharge Summary Current Active Problems Abscess (Acute) Vaginal cuff cellulitis (Acute) Condition: Stable - Instructions Diet, Activity, Other Instructions: will need to have packing removed on / Please follow genital; Hygiene Please keep the wound clean and dry. Please follow up with your primary care physician within a week. Please take your medicine as prescribed. If you develop fever, chills or your symptoms worsen come to emergency room [facility] . Referrals: Greg Castellanos MD [Staff Physician] - Disposition: HOME - Home Medications Comprehensive Discharge Medication List: Ambulatory Orders Cephalexin [Keflex] 500 mg PO BID #20 capsule 05/17/17 Ibuprofen [Motrin -] 600 mg PO TID #21 tablet 05/17/17 This patient is new to me today: No Emergency Visit: Yes ED Registration Date: 05/17/17 Care time: The patient presented to the Emergency Department on the above date and was hospitalized for further evaluation of their emergent condition. Critical Care patient: No - Discharge Referral Referred to [facility] No
[2017-05-19] MEDS: METOCLOPRAMIDE HCL 10 MG TABLET (FP) PO SCH ×2 (07:40→16:40)
[2017-05-19 08:52] LABS: MCH 25.5 pg (25.7-33.7); MCHC 32.6 g/dl (32.0-36.0); MEAN PLT VOLUME 9.4 fl (7.5-11.1); PLATELET COUNT 225 K/MM3 (134-434); RDW 12.8 % (11.6-15.6); WHITE BLOOD COUNT 5.5 K/mm3 (4.0-10.0)
[2017-05-19 09:25] LABS: ANION GAP 5 (8-16); CALCIUM 8.8 mg/dL (8.5-10.1); CO2 27 mmol/L (21-32); CREATININE 0.5 mg/dL (0.55-1.02); GLUCOSE,RANDOM 84 mg/dL (74-106)
--- NOTE | 2017-05-19 13:56 | PN ---
Teaching Attending Note Name of Resident: Edy Marie ATTENDING PHYSICIAN STATEMENT I saw and evaluated the patient. I reviewed the resident's note and discussed the case with the resident. I agree with the resident's findings and plan as documented. SUBJECTIVE:some burning on urination but overall improved. denies Cp, SOB, fever , chills, N/V/C/D OBJECTIVE: Last Vital Signs Temp Pulse Resp BP Pulse Ox 98.2 F 76 20 92/45 100 05/19/17 10:00 05/19/17 10:00 05/19/17 10:00 05/19/17 10:05/17/17 11:00 General NAD CV S1 S2 RRR no murmur/rub/gallop Lungs CTA B/L no wheezing/rales/rhonchi ASSESSMENT AND PLAN: 26yo F with is 5months presented with labia majora swelling and pain assoc with fevers found to be septic due to bartholin cyst 1. Sepsis due to R labia majora bartholin cyst- s/p I&D on 05/17. no cx was sent from surgery. BCx negative. clinically improved. leukocytosis resolved, afebrile. on Vanco day 4 and unasyn day 3. will d/w ID about transitioning to oral tablet to complete abx course. d/w pt about proper hygiene and rinsing with gregorio-bottle after urination. stressed importance with following up with her own SHIFT NURSE MANAGER, which is her choice to ensure infection is continuing to resolve. d /c home
--- NOTE | 2017-05-19 14:59 | PN ---
Progress Note, Physician History of Present Illness: Less labial and suprapubic pain Temps down WBC improved - Current Medication List Current Medications: Active Medications Acetaminophen (Tylenol -) 650 mg PO Q4H PRN PRN Reason: FEVER OR PAIN Last Admin: 05/18/17 11:48 Dose: 650 mg Lactated Ringer's (Lactated Ringers Solution) 1,000 mls @ 125 mls/hr IV ASDIR ROGER Last Admin: 05/18/17 10:15 Dose: Not Given Ampicillin Sodium/Sulbactam (Sodium 3 gm/ Sodium Chloride) 100 mls @ 200 mls/ hr IVPB Q6H-IV ROGER Last Admin: 05/19/17 09:41 Dose: 200 mls/hr Vancomycin HCl 1,000 mg/ (Dextrose) 250 mls @ 200 mls/hr IVPB BID@0200,1400 ROGER Last Admin: 05/19/17 01:21 Dose: 200 mls/hr Ibuprofen (Motrin -) 400 mg PO Q4H PRN PRN Reason: FEVER Last Admin: 05/19/17 14:11 Dose: 400 mg Metoclopramide HCl (Reglan -) 10 mg PO ACHS [facility] Last Admin: 05/19/17 07:40 Dose: 10 mg Oxycodone HCl (Roxicodone -) 5 mg PO Q4H PRN PRN Reason: PAIN Last Admin: 05/19/17 14:14 Dose: 5 mg - Objective Vital Signs: Vital Signs Temperature 98.2 F 05/19/17 10:00 Pulse Rate 76 05/19/17 10:00 Respiratory Rate 20 05/19/17 10:00 Blood Pressure 92/45 05/19/17 10:00 O2 Sat by Pulse Oximetry (%) 100 05/17/17 11:00 Constitutional: Yes: No Distress Eyes: Yes: Conjunctiva Clear Cardiovascular: Yes: Regular Rate and Rhythm, S1, S2 Respiratory: Yes: CTA Bilaterally Genitourinary: Yes: Other (R labial swelling resolved Small area of erythema suprapubic area) Labs: CBC, BMP 05/19/17 08:00 05/19/17 08:00 INR, PTT INR 1.08 (0.82-1.09) 05/17/17 06:15 Assessment/Plan S/P I&D Bartholin cyst Cellulitis R labia/ suprapubic area Fever/ leukocytosis- improved OK for switch to po keflex Outpatient BIOPROCESS ENGINEER follow up
[2017-05-19 15:01] VITALS: BP 100/68; PULSE 80; TEMP 98.4
== END 2017-05-19 16:43 | disposition home or self-care (01) | DRG 854 ==
LOC: JERFT 16:42 → JERBED 05-17 01:51 → J3W 05-17 10:35
PROVIDERS: ADMIT Internal Medicine; ATTEND Internal Medicine
PROC: 0U9M0ZX Drainage of Vulva, Open Approach, Diagnostic (ICD-10-PCS; principal; 2017-05-17 08:30)
DX: A41.89 Other specified sepsis (principal); N76.4 Abscess of vulva; N76.2 Acute vulvitis; R10.30 Lower abdominal pain, unspecified; R11.0 Nausea; D72.828 Other elevated white blood cell count; R50.9 Fever, unspecified
CPT/HCPCS: 36415; 71010-TC; 80048; 80053; 83605; 84703; 85025; 85027; 85610; 85730; 86850; 86900; 86901; 87040; 87389; 93005; 93010; 94760; 99283-25

== ENCOUNTER 2017-10-22 14:09 | Emergency (ER) | payer BC, OTHER ==
[2017-10-22 14:22] VITALS: BP 126/61; PULSE 96; TEMP 97.7; BMI 35.5
--- NOTE | 2017-10-22 16:17 | PDOC ---
History of Present Illness - General Chief Complaint: Abscess Boil Stated Complaint: ABSCESS Time Seen by Provider: 10/22/17 15:23 History Source: Patient Exam Limitations: No Limitations - History of Present Illness Initial Comments: 10/22/17 16:03 27-year-old female presented to ED with complaints of right labial mass which she states has had twice before requiring her to have excision and drainage. Patient states symptoms began yesterday and denies any fever, vaginal discharge , or urinary complaints. 10/25/17 17:37 Timing/Duration: 24 hours Severity: mild Associated Symptoms: reports: denies symptoms Past History - Past Medical History Allergies/Adverse Reactions: Allergies Allergy/AdvReac Type Severity Reaction Status Date / Time No Known Allergies Allergy Verified 10/22/17 14:18 Home Medications: Ambulatory Orders Sulfamethoxazole/Trimethoprim [Bactrim Ds -] 1 tab PO BID #14 tablet 10/22/17 Anemia: No Asthma: No COPD: No Thyroid Disease: No Other medical history: DENIES. - Suicide/Smoking/Psychosocial Hx Smoking History: Never smoked Have you smoked in the past 12 months: No Hx Alcohol Use: No Drug/Substance Use Hx: No Substance Use Type: None Patient Lives Alone: No Lives with/in: parents Review of Systems - Review of Systems Able to Perform ROS?: No Constitutional: No: Symptoms Reported : Yes: See HPI Integumentary: Yes: See HPI *Physical Exam - Vital Signs Last Vital Signs Temp Pulse Resp BP Pulse Ox 97.7 F 96 H 19 126/61 99 10/22/17 14:18 10/22/17 14:18 10/22/17 14:18 10/22/17 14:18 10/22/17 14:18 - Physical Exam General Appearance: Yes: Nourished, Appropriately Dressed. No: Apparent Distress Female Pelvic Exam: positive: Bartholin mass (right labial). negative: discharge, vaginal bleeding Procedures - Incision and Drainage I&D Site: Right: Bartholin Betadine cleansed: No Anesthesia: 1% Lidocaine Volume(ml): 1 Blade Size: 11 Attempts: 1 Plain Packing: No Complications: none Dressing: Yes Medical Decision Making - Medical Decision Making 10/22/17 16:16 Patient for evaluation of right Bartholin abscess. I and D performed without difficulty. Patient will be placed on Bactrim. Wound culture obtained. *DC/Admit/Observation/Transfer Diagnosis at time of Disposition: Abscess of Bartholin's gland - Discharge Dispostion Disposition: HOME Condition at time of disposition: Improved - Prescriptions Prescriptions: Sulfamethoxazole/Trimethoprim [Bactrim Ds -] 1 tab PO BID #14 tablet - Referrals - Patient Instructions Printed Discharge Instructions: DI for Incision and Drainage of a Skin Abscess Additional Instructions: Please apply warm compresses to the area at least 4 times a day for at least 15 minutes to promote drainage. Or you may take a hot shower to mimic the effects. Please take antibiotics as prescribed. - Post Discharge Activity Forms/Work/School Notes: Back to Work
[2017-10-22] MEDS ORDERED: IBUPROFEN 600 MG TABLET (FP) PO ONE (16:28)
[2017-10-22] MEDS ORDERED: IBUPROFEN 400 MG TABLET (FP) PO ONE (16:29)
== END 2017-10-22 16:21 | disposition home or self-care (01) ==
LOC: JERFT 14:09
PROC: 0U9L0ZZ Drainage of Vestibular Gland, Open Approach (ICD-10-PCS; principal; 2017-10-22)
DX: N75.1 Abscess of Bartholin's gland (principal)
CPT/HCPCS: 87070; 87186; 87205; 99281-25

== ENCOUNTER 2018-07-05 00:41 | Inpatient (IN) | payer OTHER ==
[2018-07-05 02:01] VITALS: BMI 32.3
--- NOTE | 2018-07-05 02:12 | PDOC ---
Attending Attestation - Resident Resident Name: Law Hawthorne - ED Attending Attestation I have performed the following: I have examined & evaluated the patient, The case was reviewed & discussed with the resident, I agree w/resident's findings & plan - HPI HPI: 07/05/18 05:45 Pt comes with vaginal bartholins abscess that is recurrent. This time more painful. Pt is febrile and she has a WBC of 19+ She will be admitted - Physicial Exam PE: 07/05/18 05:46 Agree with resident exam - Medical Decision Making 07/05/18 05:47 Dr. Reynolds is aware ([employer]CH[employer] APPRENTICE operations asst) Hospitalist team is aware also. They will admit the patient. She was treated with ceftriaxone IV and doxy IV.
--- NOTE | 2018-07-05 02:26 | PDOC ---
History of Present Illness - General Chief Complaint: Pain Stated Complaint: PAIN Time Seen by Provider: 07/05/18 01:36 - History of Present Illness Initial Comments: 07/05/18 02:25 28f with pmh of 6 episodes of recurrent Bartholin abscess in her right labia majora s/p multiple i&d's and surgical drainage including a septic episode in this ed. Tearful, she declines getting another i&d,was told she would get the actual Bartholin gland removed by surgery. She felt that this cyst started 2 days ago. Tried Sitz bath which didn't work., Denies fever, abdominal pain, rectal pain, vomiting, diarrhea or constipation, Past History - Past Medical History Allergies/Adverse Reactions: Allergies Allergy/AdvReac Type Severity Reaction Status Date / Time No Known Allergies Allergy Verified 10/22/17 14:18 Home Medications: Ambulatory Orders NK [No Known Home Medication] 07/05/18 Anemia: No Asthma: No COPD: No Thyroid Disease: No - Suicide/Smoking/Psychosocial Hx Smoking History: Never smoked Have you smoked in the past 12 months: No Information on smoking cessation initiated: No Hx Alcohol Use: No Drug/Substance Use Hx: No Substance Use Type: None Review of Systems - Review of Systems Able to Perform ROS?: Yes Is the patient limited Filipino proficient: No Constitutional: No: Symptoms Reported HEENTM: No: Symptoms Reported Respiratory: No: Symptoms reported Cardiac (ROS): No: Symptoms Reported ABD/GI: No: Symptoms Reported : Yes: See HPI Musculoskeletal: No: Symptoms Reported Integumentary: No: Symptoms Reported *Physical Exam - Vital Signs Last Vital Signs Temp Pulse Resp BP Pulse Ox 99.2 F 115 H 18 128/102 H 97 07/05/18 01:15 07/05/18 01:15 07/05/18 01:15 07/05/18 01:15 07/05/18 01:15 - Physical Exam General Appearance: Yes: Nourished, Appropriately Dressed. No: Apparent Distress HEENT: positive: EOMI, BALWINDER, Normal ENT Inspection Respiratory/Chest: positive: Lungs Clear, Normal Breath Sounds. negative: Chest Tender, Respiratory Distress Cardiovascular: positive: Regular Rhythm, S1, S2, Tachycardia Female Pelvic Exam: positive: Bartholin mass Gastrointestinal/Abdominal: positive: Normal Bowel Sounds, Flat, Soft. negative : Tender Integumentary: positive: Normal Color, Dry, Warm Neurologic: positive: Fully Oriented, Alert, Normal Mood/Affect, Normal Response Moderate Sedation - Procedure Monitoring Vital Signs: Procedure Monitoring Vital Signs Temperature 99.2 F 07/05/18 01:15 Pulse Rate 115 H 07/05/18 01:15 Respiratory Rate 18 07/05/18 01:15 Blood Pressure 128/102 H 07/05/18 01:15 O2 Sat by Pulse Oximetry (%) 97 07/05/18 01:15 ED Treatment Course - LABORATORY CBC & Chemistry Diagram: 07/05/18 02:24 07/05/18 02:24 Medical Decision Making - Medical Decision Making 07/05/18 02:56 28F with pmh of recurrent bartholin abscesses presents to the ED with another episode. Elevated white count, low grade fever. Will obtain blood culture, lactate and admit patient to floors for procedure. *DC/Admit/Observation/Transfer Diagnosis at time of Disposition: Abscess of Bartholin's gland - Discharge Dispostion Decision to Admit order: Yes - Referrals Referrals: Salinas Heller [Primary Care Provider] - - Patient Instructions - Post Discharge Activity
[2018-07-05 02:49] LABS: BASO % 0.5 % (0-2.0); EOS % 0.2 % (0-4.5); HEMATOCRIT 34.9 % (32.4-45.2); HEMOGLOBIN 11.2 GM/dL (10.7-15.3); LYMPH % 5.9 % (8-40); MCH 22.6 pg (25.7-33.7); MCHC 32.1 g/dl (32.0-36.0); MEAN CELL VOLUME 70.3 fl (80-96); MEAN PLT VOLUME 10.3 fl (7.5-11.1); MONO % 4.8 % (3.8-10.2); NEUT % 88.6 % (42.8-82.8); PLATELET COUNT 252 K/MM3 (134-434); RBC 4.96 M/mm3 (3.60-5.2); RDW 17.7 % (11.6-15.6); WHITE BLOOD COUNT 19.3 K/mm3 (4.0-10.0)
[2018-07-05 02:50] LABS: URINE APPEARANCE SLCLOUDY; URINE BILIRUBIN NEGATIVE (<2.0 mg/dL); URINE COLOR DKYELLOW; URINE GLUCOSE (UA) NEGATIVE (NEGATIVE); URINE KETONE NEGATIVE (NEGATIVE); URINE LEUK ESTERASE 3+ (NEGATIVE); URINE NITRITE NEGATIVE (NEGATIVE); URINE PROTEIN 1+ (NEGATIVE)
[2018-07-05 03:19] LABS: EPI CELLS FEW /HPF (FEW); URINE MUCUS MODERATE
[2018-07-05] MEDS ORDERED: CEFTRIAXONE 1 GM in DEXTROSE 5%-WATER - 100 ML IVPB ONE (03:25)
[2018-07-05] MEDS ORDERED: DOXYCYCLINE INJECTION 100 MG in DEXTROSE 5%-WATER - 100 ML IVPB ONE (03:27)
[2018-07-05 03:31] LABS: ALBUMIN 3.5 g/dl (3.4-5.0); ALK PHOS 128 U/L (45-117); ANION GAP 10 MMOL/L (8-16); BILIRUBIN,TOTAL 0.7 mg/dL (0.2-1); BLOOD UREA NITROGEN 11 mg/dL (7-18); CHLORIDE 102 mmol/L (98-107); CO2 23 mmol/L (21-32); CREATININE 0.6 mg/dL (0.55-1.3); GLUCOSE,RANDOM 93 mg/dL (74-106); POTASSIUM 4.2 mmol/L (3.5-5.1); SGOT/AST 28 U/L (15-37); SGPT/ALT 25 U/L (13-61); SODIUM 135 mmol/L (136-145); TOT PROT 7.7 g/dl (6.4-8.2)
[2018-07-05] MEDS ORDERED: VANCOMYCIN 1 GM in D5W (PRE-DOCKED) 1,000 MG/250 ML IVPB ONE (03:56)
[2018-07-05] MEDS ORDERED: CEFTRIAXONE 1 GM/50 ML BAG ONE (03:56)
[2018-07-05] MEDS ORDERED: DOXYCYCLINE HYCLATE 100 MG VIAL ONE (03:56)
--- NOTE | 2018-07-05 03:56 | PN ---
Teaching Attending Note Name of Resident: Adams Bobo ATTENDING PHYSICIAN STATEMENT I saw and evaluated the patient. I reviewed the resident's note and discussed the case with the resident. I agree with the resident's findings and plan as documented. 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 Abreu and Dr. Welsh). She did not have the last one surgically managed but has had some managed from said approach in the past. It has been worsening for the past 2 days with pain radiating throughout her groin and she is found to have a white count, be mildly tachycardic, and to have fevers. She said the last abscess that was nonoperatively managed popped when she got home and that it hasn't really healed since. She was counseled on hygeine the last time she was here. Negative STD pannels in the past. 10 sys ROS done and negative aside from HPI PMH and PSH reviewed FH asked and noncontributory Social history remains unchanged from prior visit OBJECTIVE: VS, labs reviewed NAD, AAO, resting in bed RRR to slightly tachy with s1/2 no mgr Lungs CTAB sym exp R-vulvar abscess painful to touch red and inflamed; otherwise normal NT ND +BS CN2-12 wnl, no fnd Old microbiology reviewed; abscess last time it was drained grew out normal xavier alongside EF; Sn reviewed. ID had her on IV vanco/unasyn. Labs show an elevated WBC to 19; UA with 3+LE and blood. ASSESSMENT AND PLAN: Pt. presents with recurring vulvar abscess 1) Vulvar Abscess/infected b-lion cyst -Treated successfully last time inpatient by Dr. Carson with IV vancomycin and IV unasyn then transitioned to keflex; placing on vanco and unasyn and consulting ID in the AM; appreciate Dr. Carson's input on the ongoing care of this patient. -Cultures pending; if drained obtain intraop wound cx. Consulting FACULTY RESEARCH ASSISTANT to eval for potential drainage. -Pain control. Check A1c with recurring abscess. ESR/CRP. Though low probability she is of child bearing age and it would be devistating with any infection causing infertility so will assess for any possible intrauterine infection with transvaginal us. This was also done last time and it was negative but patient tells me her sx are worse this time. Repeat GC probe. -IVF; lactate negative. NPO for possible procedure. 2) Mildly Elevated Alk Phos -Only slightly over the upper limit of normal. Trend. If she develops sx consider imaging but can hold off for now. FENA -LR@100 -PRN replace -NPO for now; if no drainage planned will feed regular diet -As tolerated Full Code
--- NOTE | 2018-07-05 04:38 | HP ---
CHIEF COMPLAINT: Recurrent right labial abscess PCP: Pina HISTORY OF PRESENT ILLNESS: 28 yo female with PMH recurrent right labial abscess presents for 2 days pain in her right labia. She states she was seen most recently last month. At that time it was not drained, but was medically managed. She was told that if it recurred, she would need the entire gland removed surgically. She denies any fevers or chills. ER course was notable for: (1) UA 1+ prot, 1+ blood, 3+LE, 40WBCs (2) Rocephin, (3) Case discussed with control room agent who will see in AM Recent Travel: none PAST MEDICAL HISTORY: none PAST SURGICAL HISTORY: Previous I&D of similar abscess Social History: Smoking: denies Alcohol: denies Drugs: denies Family History: Allergies No Known Allergies Allergy (Verified 10/22/17 14:18) HOME MEDICATIONS: Home Medications Medication Instructions Recorded Sulfamethoxazole/Trimethoprim 1 tab PO BID #14 tablet 10/22/17 [Bactrim Ds -] REVIEW OF SYSTEMS CONSTITUTIONAL: Absent: fever, chills, diaphoresis, generalized weakness, malaise, loss of appetite, weight change HEENT: Absent: rhinorrhea, nasal congestion, throat pain, throat swelling, difficulty swallowing, mouth swelling, ear pain, eye pain, visual changes CARDIOVASCULAR: Absent: chest pain, syncope, palpitations, irregular heart rate, lightheadedness , peripheral edema RESPIRATORY: Absent: cough, shortness of breath, dyspnea with exertion, orthopnea, wheezing, stridor, hemoptysis GASTROINTESTINAL: Absent: abdominal pain, abdominal distension, nausea, vomiting, diarrhea, constipation, melena, hematochezia GENITOURINARY: genital pain Absent: dysuria, frequency, urgency, hesitancy, hematuria, flank pain, MUSCULOSKELETAL: Absent: myalgia, arthralgia, joint swelling, back pain, neck pain SKIN: Absent: rash, itching, pallor HEMATOLOGIC/IMMUNOLOGIC: Absent: easy bleeding, easy bruising, lymphadenopathy, frequent infections ENDOCRINE: Absent: unexplained weight gain, unexplained weight loss, heat intolerance, cold intolerance NEUROLOGIC: Absent: headache, focal weakness or paresthesias, dizziness, unsteady gait, seizure, mental status changes, bladder or bowel incontinence PSYCHIATRIC: Absent: anxiety, depression, suicidal or homicidal ideation, hallucinations. PHYSICAL EXAMINATION Vital Signs - 24 hr 07/05/18 07/05/18 01:15 03:07 Temperature 99.2 F 100.4 F H Pulse Rate 115 H Pulse Rate [ 78 Apical] Respiratory 18 18 Rate Blood Pressure 128/102 H Blood Pressure 106/62 [Left Arm] O2 Sat by Pulse 97 99 Oximetry (%) GENERAL: A&O, no acute distress HEAD: Normocephalic, atraumatic. EYES: PERRL, no scleral icterus EARS, NOSE, THROAT: oropharynx clear without exudates. Moist mucous membranes. NECK: supple without lymphadenopathy LUNGS: CTA b/l, no crackles or wheezes HEART: Regular rate and rhythm, normal S1 and S2 without murmur ABDOMEN: Soft, nontender to palpation, normoactive bowel sounds : Right labial abscess with induration, erythema, very tender to palpation MUSCULOSKELETAL: No bony deformities or tenderness. EXTREMITIES: 2+ pulses, warm, well-perfused. No peripheral edema. NEUROLOGICAL: Cranial nerves II-XII grossly intact. Normal speech. Laboratory Results - last 24 hr 07/05/18 07/05/18 07/05/18 02:24 02:24 02:33 WBC 19.3 H RBC 4.96 Hgb 11.2 Hct 34.9 MCV 70.3 L MCH 22.6 L MCHC 32.1 RDW 17.7 H Plt Count 252 MPV 10.3 Absolute Neuts (auto) 17.1 H Neutrophils % 88.6 H D Lymphocytes % 5.9 L D Monocytes % 4.8 Eosinophils % 0.2 D Basophils % 0.5 Nucleated RBC % 0 Sodium 135 L Potassium 4.2 Chloride 102 Carbon Dioxide 23 Anion Gap 10 BUN 11 Creatinine 0.6 Creat Clearance w eGFR > 60 Random Glucose 93 Lactic Acid Calcium 9.0 Total Bilirubin 0.7 AST 28 ALT 25 Alkaline Phosphatase 128 H Total Protein 7.7 Albumin 3.5 Urine Color Dkyellow Urine Appearance Slcloudy Urine pH 5.0 Ur Specific [place] 1.028 Urine Protein 1+ H Urine Glucose (UA) Negative Urine Ketones Negative Urine Blood 1+ H Urine Nitrite Negative Urine Bilirubin Negative Urine Urobilinogen 2.0 H Ur Leukocyte Esterase 3+ H Urine WBC (Auto) 40 Urine RBC (Auto) 7 Ur Epithelial Cells Few Urine Mucus Moderate 07/05/18 03:20 WBC RBC Hgb Hct MCV MCH MCHC RDW Plt Count MPV Absolute Neuts (auto) Neutrophils % Lymphocytes % Monocytes % Eosinophils % Basophils % Nucleated RBC % Sodium Potassium Chloride Carbon Dioxide Anion Gap BUN Creatinine Creat Clearance w eGFR Random Glucose Lactic Acid 0.6 Calcium Total Bilirubin AST ALT Alkaline Phosphatase Total Protein Albumin Urine Color Urine Appearance Urine pH Ur Specific [place] Urine Protein Urine Glucose (UA) Urine Ketones Urine Blood Urine Nitrite Urine Bilirubin Urine Urobilinogen Ur Leukocyte Esterase Urine WBC (Auto) Urine RBC (Auto) Ur Epithelial Cells Urine Mucus ASSESSMENT/PLAN: 28 yo female with PMH recurrent right labial abscess presents for 2 days pain in her right labia. Sepsis secondary to Recurrent Bartholin Gland Abscess -WBC 19, Temp 100.4, Tachycardic on arrival -UA noted with 3+ LE, 40 WBCs -Rocephin given in ED -Pt with recent cultures sensitive to vanc/unasyn on prior visit -Will restart for now and reconsult ID -Mental Health Nurse Practitioner discussed case with ED and will see in AM -Transvaginal US pending -ESR, CRP -HIV negative in 2017, will repeat -Chlam/Raúl/Trich pending -Wound c/s pending -LR @ 100 cc/hr DVT Prophylaxis -Heparin 5000 units SQ TID FEN -Fluids: none -Electrolytes: No electrolyte abnormalities, BMP in AM -Nutrition: NPO in case I&D required today Disposition Med/Surg Visit type - Emergency Visit Emergency Visit: Yes Care time: The patient presented to the Emergency Department on the above date and was hospitalized for further evaluation of their emergent condition. - New Patient This patient is new to me today: Yes Date on this admission: 07/05/18 - Critical Care Critical Care patient: No
[2018-07-05] MEDS ORDERED: VANCOMYCIN 1 GRAM (PRE-DOCKED) 1,000 MG/250 ML BAG IVPB ONE (04:58)
[2018-07-05] MEDS ORDERED: MORPHINE SULFATE 2 MG/ML VIAL ONE ×3 (05:54→14:55)
[2018-07-05] MEDS ORDERED: HEPARIN NA (PORCINE) 5,000 UNITS/ML 1ML VIAL ONE ×2 (05:54→14:56)
[2018-07-05] MEDS: HEPARIN NA (PORCINE) 5,000 UNITS/ML 1ML VIAL SQ SCH ×3 (06:03→22:11)
[2018-07-05] MEDS: MORPHINE SULFATE 2 MG/ML VIAL IVPUSH PRN ×6 (06:04→23:13)
[2018-07-05] MEDS: AMPICILLIN NA/SULBACTAM NA 3 GM in SODIUM CHLORIDE 100 ML IVPB SCH ×3 (06:04→15:54)
[2018-07-05] MEDS ORDERED: SODIUM CHLORIDE 500 ML IV STA (06:18)
[2018-07-05] MEDS ORDERED: ACETAMINOPHEN 325 MG TABLET (FP) PO PRN ×2 (06:19→21:14)
[2018-07-05] MEDS: LACTATED RINGERS SOLUTION 1,000 ML/1,000 ML INFUS.BAG IV SCH ×2 (07:03→17:19)
[2018-07-05] MEDS ORDERED: ACETAMINOPHEN 325 MG TABLET (FP) ONE (07:26)
[2018-07-05 08:24] LABS: HEMATOCRIT 34.9 % (32.4-45.2); HEMOGLOBIN 10.6 GM/dL (10.7-15.3); MCH 21.6 pg (25.7-33.7); MCHC 30.3 g/dl (32.0-36.0); MEAN CELL VOLUME 71.3 fl (80-96); MEAN PLT VOLUME 9.7 fl (7.5-11.1); PLATELET COUNT 222 K/MM3 (134-434); RDW 17.1 % (11.6-15.6)
[2018-07-05 08:40] LABS: MAGNESIUM 1.9 mg/dL (1.8-2.4); PHOSPHOROUS 2.9 mg/dL (2.5-4.9)
[2018-07-05] MEDS: PIPERACILLIN/TAZOB 4.5 GM 4.5 GM in DEXTROSE 5%-WATER 100 ML IVPB SCH ×2 (10:35→17:17)
[2018-07-05] MEDS ORDERED: PIPERACILLIN/TAZOB 4.5 GM 4.5 GM/100 ML BAG IVPB ONE ×2 (10:35→10:36)
--- NOTE | 2018-07-05 10:35 | CON.ID ---
Consult Consult Specialty:: infectious disease Referred by:: hospitalist Reason for Consultation:: labial abscess - History of Present Illness Chief Complaint: labial swelling and pain , fever and headache for 2 days History of Present Illness: 28 yo female with 2 days of fever, headache, nausea +unprotected vaginal sex 3 days ago notes swelling of rigth right labia- this has happened 6 times before and has required incision drainage May 2017 +dysuria- this is new for her has refused drainage in the ED and is awaiting gyne evaluation- wants to have the bartholn cyst removed received vancomcyin, doxycyclne, unasyn and rocephin in ED - History Source History Provided By: Patient, Medical Record Limitations to Obtaining History: No Limitations - Past Medical History ...: No - Past Surgical History Past Surgical History: Yes: Additional Surgical History: tummy tuck 4 months ago in - Alcohol/Substance Use Hx Alcohol Use: No - Smoking History Smoking history: Never smoked Have you smoked in the past 12 months: No - Social History Usual Living Arrangement: With Significant Other ADL: Independent Occupation: works for [employer] History of Recent Travel: Yes ( 4 months ago-stayed one month) Home Medications - Allergies Allergies/Adverse Reactions: Allergies Allergy/AdvReac Type Severity Reaction Status Date / Time No Known Allergies Allergy Verified 10/22/17 14:18 - Home Medications Home Medications: Ambulatory Orders NK [No Known Home Medication] 07/05/18 Family Disease History - Family Disease History Family History: Denies Review of Systems - Review of Systems Constitutional: reports: Chills, Fever Eyes: reports: No Symptoms HENT: reports: No Symptoms Neck: reports: No Symptoms Cardiovascular: reports: No Symptoms. denies: Chest Pain Respiratory: reports: No Symptoms. denies: Cough, SOB Gastrointestinal: reports: Other (pelvic pain) Genitourinary: reports: Burning Physical Exam Vital Signs: Vital Signs Temperature 101.1 F H 07/05/18 08:26 Pulse Rate 121 H 07/05/18 08:26 Respiratory Rate 17 07/05/18 08:26 Blood Pressure 124/71 07/05/18 08:26 O2 Sat by Pulse Oximetry (%) 99 07/05/18 08:26 Constitutional: Yes: Well Nourished, No Distress, Calm Eyes: Yes: Conjunctiva Clear HENT: Yes: Atraumatic, Normocephalic Neck: Yes: Supple, Trachea Midline Cardiovascular: Yes: Regular Rate and Rhythm Respiratory: Yes: Regular, CTA Bilaterally Gastrointestinal: Yes: Normal Bowel Sounds, Soft, Other (right labia diffusely tender and swollen with swelling extending towards the perineum) Extremities: Yes: WNL Edema: No Psychiatric: Yes: Alert Labs: CBC, BMP 07/05/18 08:00 07/05/18 02:24 Problem List - Problems (1) Fever Code(s): R50.9 - FEVER, UNSPECIFIED (2) Abscess of Bartholin's gland Code(s): N75.1 - ABSCESS OF BARTHOLIN'S GLAND (3) UTI (urinary tract infection) Code(s): N39.0 - URINARY TRACT INFECTION, SITE NOT SPECIFIED Assessment/Plan 28 yo female with 2 day history of right labial swelling and fever, also dysuria has had 6 episodes of right labia swelling in the past most recently last month with spontaneous drainage she was last hospitalized in the spring with fever and had drainage of the labia then given recent tummy tuck in [place] (was there for one month on both iv and po antibiotics) I am concerned about antibiotic drug resistance plan vanco/zosyn hiv testing check [facility] [place] gyne consult pending-patient NPO for possible surgical procedure today d/w hospitalist
[2018-07-05] MEDS ORDERED: SODIUM CHLORIDE 1,000 ML IV STA (10:54)
--- NOTE | 2018-07-05 11:08 | EKG ---
Test Reason : Blood Pressure : / mmHG Vent. Rate : 100 BPM Atrial Rate : 100 BPM P-R Int : 130 ms QRS Dur : 070 ms QT Int : 330 ms P-R-T Axes : 053 060 020 degrees QTc Int : 425 ms NORMAL SINUS RHYTHM NORMAL ECG WHEN COMPARED WITH ECG OF 16-MAY-2017 23:37, NO SIGNIFICANT CHANGE WAS FOUND Confirmed by ZEE KAHN MD ([id number]) on 07/05/2018 11:08:09 AM Referred By: Confirmed By:ZEE KAHN MD
[2018-07-05] MEDS ORDERED: DEXTROSE 5%-WATER 100 ML IVPB ONE (16:37)
[2018-07-05] MEDS ORDERED: PIPERACILLIN/TAZOBACTAM 4.5 GM VIAL IVPB ONE (16:37)
--- NOTE | 2018-07-05 16:48 | PN ---
Physical Exam: SUBJECTIVE: Patient seen and examined at bedside. No overnight events. She states that pain medication helps but does not last long enough. Denies CP,SHIPMAN, SOB, abdominal pain, nausea or vomiting. OBJECTIVE: Vital Signs Period Temp Pulse Resp BP Sys/Amador Pulse Ox Last 24 Hr 99.2 F-102.3 F 78-121 17-22 106-128/62-102 97-100 GENERAL: A&O, no acute distress HEAD: Normocephalic, atraumatic. EYES: PERRL, no scleral icterus EARS, NOSE, THROAT: oropharynx clear without exudates. Moist mucous membranes. NECK: supple without lymphadenopathy LUNGS: CTA b/l, no crackles or wheezes HEART: Regular rate and rhythm, normal S1 and S2 without murmur ABDOMEN: Soft, nontender to palpation, normoactive bowel sounds : Right labial abscess with induration, erythema, very tender to palpation MUSCULOSKELETAL: No bony deformities or tenderness. EXTREMITIES: 2+ pulses, warm, well-perfused. No peripheral edema. NEUROLOGICAL: Cranial nerves II-XII grossly intact. Normal speech Laboratory Results - last 24 hr 07/05/18 07/05/18 07/05/18 02:24 02:24 02:33 WBC 19.3 H RBC 4.96 Hgb 11.2 Hct 34.9 MCV 70.3 L MCH 22.6 L MCHC 32.1 RDW 17.7 H Plt Count 252 MPV 10.3 Absolute Neuts (auto) 17.1 H Neutrophils % 88.6 H D Lymphocytes % 5.9 L D Monocytes % 4.8 Eosinophils % 0.2 D Basophils % 0.5 Nucleated RBC % 0 ESR Sodium 135 L Potassium 4.2 Chloride 102 Carbon Dioxide 23 Anion Gap 10 BUN 11 Creatinine 0.6 Creat Clearance w eGFR > 60 Random Glucose 93 Lactic Acid Calcium 9.0 Phosphorus Magnesium Total Bilirubin 0.7 AST 28 ALT 25 Alkaline Phosphatase 128 H C-Reactive Protein Total Protein 7.7 Albumin 3.5 Beta HCG, Quant Urine Color Dkyellow Urine Appearance Slcloudy Urine pH 5.0 Ur Specific [place] 1.028 Urine Protein 1+ H Urine Glucose (UA) Negative Urine Ketones Negative Urine Blood 1+ H Urine Nitrite Negative Urine Bilirubin Negative Urine Urobilinogen 2.0 H Ur Leukocyte Esterase 3+ H Urine WBC (Auto) 40 Urine RBC (Auto) 7 Ur Epithelial Cells Few Urine Mucus Moderate HIV Ag/Ab Interpret HIV Genotype HIV-2 Antibody HIV-2 Antibody Conf HIV 1&2 Antibody Screen HIV 1&2 Ab Final Banner HIV P24 Antigen Blood Type Antibody Screen 07/05/18 07/05/18 07/05/18 03:20 04:33 04:33 WBC RBC Hgb Hct MCV MCH MCHC RDW Plt Count MPV Absolute Neuts (auto) Neutrophils % Lymphocytes % Monocytes % Eosinophils % Basophils % Nucleated RBC % ESR Sodium Potassium Chloride Carbon Dioxide Anion Gap BUN Creatinine Creat Clearance w eGFR Random Glucose Lactic Acid 0.6 Calcium Phosphorus Magnesium Total Bilirubin AST ALT Alkaline Phosphatase C-Reactive Protein Cancelled Total Protein Albumin Beta HCG, Quant Urine Color Urine Appearance Urine pH Ur Specific [place] Urine Protein Urine Glucose (UA) Urine Ketones Urine Blood Urine Nitrite Urine Bilirubin Urine Urobilinogen Ur Leukocyte Esterase Urine WBC (Auto) Urine RBC (Auto) Ur Epithelial Cells Urine Mucus HIV Ag/Ab Interpret HIV Genotype HIV-2 Antibody HIV-2 Antibody Conf HIV 1&2 Antibody Screen Negative HIV 1&2 Ab Final Banner HIV P24 Antigen Negative Blood Type Antibody Screen 07/05/18 07/05/18 07/05/18 04:33 08:00 08:00 WBC 18.0 H RBC 4.90 Hgb 10.6 L Hct 34.9 MCV 71.3 L MCH 21.6 L MCHC 30.3 L RDW 17.1 H Plt Count 222 MPV 9.7 Absolute Neuts (auto) Neutrophils % Lymphocytes % Monocytes % Eosinophils % Basophils % Nucleated RBC % ESR 26 H Sodium Potassium Chloride Carbon Dioxide Anion Gap BUN Creatinine Creat Clearance w eGFR Random Glucose Lactic Acid Calcium Phosphorus 2.9 Magnesium 1.9 Total Bilirubin AST ALT Alkaline Phosphatase C-Reactive Protein Total Protein Albumin Beta HCG, Quant Urine Color Urine Appearance Urine pH Ur Specific [place] Urine Protein Urine Glucose (UA) Urine Ketones Urine Blood Urine Nitrite Urine Bilirubin Urine Urobilinogen Ur Leukocyte Esterase Urine WBC (Auto) Urine RBC (Auto) Ur Epithelial Cells Urine Mucus HIV Ag/Ab Interpret HIV Genotype HIV-2 Antibody HIV-2 Antibody Conf HIV 1&2 Antibody Screen HIV 1&2 Ab Final Banner HIV P24 Antigen Blood Type Antibody Screen 07/05/18 07/05/18 07/05/18 08:00 10:59 10:59 WBC RBC Hgb Hct MCV MCH MCHC RDW Plt Count MPV Absolute Neuts (auto) Neutrophils % Lymphocytes % Monocytes % Eosinophils % Basophils % Nucleated RBC % ESR Sodium Potassium Chloride Carbon Dioxide Anion Gap BUN Creatinine Creat Clearance w eGFR Random Glucose Lactic Acid Calcium Phosphorus Magnesium Total Bilirubin AST ALT Alkaline Phosphatase C-Reactive Protein Total Protein Albumin Beta HCG, Quant < 1.0 Urine Color Urine Appearance Urine pH Ur Specific [place] Urine Protein Urine Glucose (UA) Urine Ketones Urine Blood Urine Nitrite Urine Bilirubin Urine Urobilinogen Ur Leukocyte Esterase Urine WBC (Auto) Urine RBC (Auto) Ur Epithelial Cells Urine Mucus HIV Ag/Ab Interpret Cancelled HIV Genotype Cancelled HIV-2 Antibody Cancelled HIV-2 Antibody Conf Cancelled HIV 1&2 Antibody Screen HIV 1&2 Ab Final Interp Cancelled HIV P24 Antigen Blood Type O POSITIVE Antibody Screen Negative Active Medications Generic Name Dose Route Start Last Admin Trade Name Freq PRN Reason Stop Dose Admin Acetaminophen 650 mg 07/05/18 06:19 07/05/18 07:17 Tylenol - PO 650 mg Q4H PRN Administration FEVER Heparin Sodium (Porcine) 5,000 unit 07/05/18 06:00 07/05/18 14:57 Heparin - SQ 5,000 unit TID ROGER Administration Lactated Ringer's 1,000 ml in 1,000 mls @ 100 mls/hr 07/05/18 06:15 07/05/18 07:03 Lactated Ringers Solution IV 100 mls/hr ASDIR ROGER Administration Vancomycin HCl 1,000 mg in 250 mls @ 166.667 mls/hr 07/05/18 17:00 Vancomycin (Pre-Docked) IVPB Q12H ROGER Protocol Piperacillin Sod/Tazobactam 100 mls @ 200 mls/hr 07/05/18 10:45 07/05/18 10: 35 Sod 4.5 gm/ Dextrose IVPB 200 mls/hr Q8H-IV ROGER Administration Protocol Morphine Sulfate 2 mg 07/05/18 10:56 07/05/18 14:58 Morphine Sulfate IVPUSH 2 mg Q2H PRN Administration PAIN LEVEL 6-10 ASSESSMENT/PLAN: 28 yo female with PMH recurrent right labial abscess presents for 2 days pain in her right labia. Problem List - Problems (1) Abscess of Bartholin's gland Assessment/Plan: * ID consulted - started on Vanco /Zosyn * HARDWARE SUPPLIES SALES REPRESENTATIVE consulted to possible ID. * IVF with NS x 1L * Pain control 2mg Morphine Q2H * CT pelvis pending to R/O fistula. * Chlam/Raúl/Trich pending * Wound c/s pending * ESR, CRP Visit type - Emergency Visit Emergency Visit: Yes ED Registration Date: 07/05/18 Care time: The patient presented to the Emergency Department on the above date and was hospitalized for further evaluation of their emergent condition. - New Patient This patient is new to me today: Yes Date on this admission: 07/06/18 - Critical Care Critical Care patient: No
--- NOTE | 2018-07-05 17:00 | PN ---
Teaching Attending Note Name of Resident: Jung Chapman ATTENDING PHYSICIAN STATEMENT I saw and evaluated the patient. I reviewed the resident's note and discussed the case with the resident. I agree with the resident's findings and plan as documented. SUBJECTIVE: patient complains of severe vaginal pain. No cp, sob, n/v. OBJECTIVE: Gen: febrile CV: tachy w/o m/r/g Pulm: ctab w/o w/r/r Abd: +bs, s/nt/nd : R vaginal labial edema with pain Ext: no c/c/e ASSESSMENT AND PLAN: -case d/w ID -pelvic CT reviewed -vancomycin and zosyn -HIV negative -gynecology consult for surgical intervention Problem List - Problems (1) Abscess of Bartholin's gland Code(s): N75.1 - ABSCESS OF BARTHOLIN'S GLAND
[2018-07-05] MEDS: VANCOMYCIN 1 GRAM (PRE-DOCKED) 1,000 MG/250 ML BAG IVPB SCH (17:18)
[2018-07-05] MEDS ORDERED: ONDANSETRON 4 MG/2 ML VIAL IVPUSH PRN (21:31)
[2018-07-06] MEDS ORDERED: PIPERACILLIN/TAZOBACTAM 4.5 GM VIAL IVPB ONE ×3 (00:51→09:06)
[2018-07-06] MEDS ORDERED: DEXTROSE 5%-WATER 100 ML IVPB ONE ×3 (00:52→09:06)
[2018-07-06] MEDS: MORPHINE SULFATE 2 MG/ML VIAL IVPUSH PRN ×4 (01:16→21:02)
[2018-07-06] MEDS: PIPERACILLIN/TAZOB 4.5 GM 4.5 GM in DEXTROSE 5%-WATER 100 ML IVPB SCH ×2 (01:16→09:47)
[2018-07-06] MEDS: VANCOMYCIN 1 GRAM (PRE-DOCKED) 1,000 MG/250 ML BAG IVPB SCH (05:45)
[2018-07-06] MEDS: HEPARIN NA (PORCINE) 5,000 UNITS/ML 1ML VIAL SQ SCH ×3 (06:15→21:03)
[2018-07-06] MEDS: LACTATED RINGERS SOLUTION 1,000 ML/1,000 ML INFUS.BAG IV SCH (06:16)
[2018-07-06 07:24] LABS: BASO % 0.5 % (0-2.0); EOS % 1.4 % (0-4.5); LYMPH % 20.8 % (8-40); MCH 21.5 pg (25.7-33.7); MCHC 30.1 g/dl (32.0-36.0); MEAN CELL VOLUME 71.4 fl (80-96); MEAN PLT VOLUME 9.8 fl (7.5-11.1); MONO % 4.9 % (3.8-10.2); NEUT % 72.4 % (42.8-82.8); PLATELET COUNT 183 K/MM3 (134-434); RBC 4.21 M/mm3 (3.60-5.2); RDW 17.5 % (11.6-15.6); WHITE BLOOD COUNT 16.7 K/mm3 (4.0-10.0)
[2018-07-06 08:26] LABS: ALBUMIN 2.4 g/dl (3.4-5.0); ALK PHOS 93 U/L (45-117); ANION GAP 11 MMOL/L (8-16); BILIRUBIN,TOTAL 0.9 mg/dL (0.2-1); BLOOD UREA NITROGEN 4 mg/dL (7-18); CHLORIDE 106 mmol/L (98-107); CO2 23 mmol/L (21-32); CREATININE 0.5 mg/dL (0.55-1.3); GLUCOSE,RANDOM 104 mg/dL (74-106); POTASSIUM 3.1 mmol/L (3.5-5.1); SGOT/AST 13 U/L (15-37); SGPT/ALT 15 U/L (13-61); SODIUM 140 mmol/L (136-145); TOT PROT 5.6 g/dl (6.4-8.2)
[2018-07-06 11:37] LABS: ANISOCYTOSIS 1+; MACROCYTOSIS 0; OVALOCYTE 1+; PLATELET ESTIMATE NORMAL
[2018-07-06] MEDS ORDERED: POTASSIUM CHLORIDE TABS 20 MEQ TABLET.ER (FP) PO ONE ×2 (12:30→18:00)
[2018-07-06] MEDS ORDERED: ONDANSETRON 4 MG/2 ML VIAL IVPUSH PRN ×2 (12:33→15:42)
--- NOTE | 2018-07-06 12:34 | PN ---
Physical Exam: SUBJECTIVE: Patient seen and examined at bedside. No overnight events. No new complaints. Continues to have vaginal pain. Denies CP,SHIPMAN, SOB, abdominal pain, nausea or vomiting. OBJECTIVE: Vital Signs Period Temp Pulse Resp BP Sys/Amador Pulse Ox Last 24 Hr 98.9 F-100.3 F 89-104 17-20 115-134/57-77 99-99 GENERAL: A&O, no acute distress HEAD: Normocephalic, atraumatic. EYES: PERRL, no scleral icterus EARS, NOSE, THROAT: oropharynx clear without exudates. Moist mucous membranes. NECK: supple without lymphadenopathy LUNGS: CTA b/l, no crackles or wheezes HEART: Regular rate and rhythm, normal S1 and S2 without murmur ABDOMEN: Soft, nontender to palpation, normoactive bowel sounds : Right labial abscess with induration, erythema, very tender to palpation MUSCULOSKELETAL: No bony deformities or tenderness. EXTREMITIES: 2+ pulses, warm, well-perfused. No peripheral edema. NEUROLOGICAL: Cranial nerves II-XII grossly intact. Normal speech Laboratory Results - last 24 hr 07/06/18 07/06/18 06:15 06:15 WBC 16.7 H RBC 4.21 Hgb 9.0 L Hct 30.0 L MCV 71.4 L MCH 21.5 L MCHC 30.1 L RDW 17.5 H Plt Count 183 MPV 9.8 Absolute Neuts (auto) 12.1 H Neutrophils % 72.4 Lymphocytes % 20.8 D Monocytes % 4.9 Eosinophils % 1.4 D Basophils % 0.5 Nucleated RBC % 0 Sodium 140 Potassium 3.1 L Chloride 106 Carbon Dioxide 23 Anion Gap 11 BUN 4 L Creatinine 0.5 L Creat Clearance w eGFR > 60 Random Glucose 104 Calcium 8.0 L Total Bilirubin 0.9 AST 13 L ALT 15 Alkaline Phosphatase 93 Total Protein 5.6 L Albumin 2.4 L Active Medications Generic Name Dose Route Start Last Admin Trade Name Freq PRN Reason Stop Dose Admin Acetaminophen 650 mg 07/05/18 21:14 07/06/18 03:22 Tylenol - PO 650 mg Q4H PRN Administration PAIN OR FEVER Heparin Sodium (Porcine) 5,000 unit 07/05/18 06:00 07/06/18 06:15 Heparin - SQ 5,000 unit TID ROGER Administration Lactated Ringer's 1,000 ml in 1,000 mls @ 100 mls/hr 07/05/18 06:15 07/06/18 06:16 Lactated Ringers Solution IV 100 mls/hr ASDIR ROGER Administration Vancomycin HCl 1,000 mg in 250 mls @ 166.667 mls/hr 07/05/18 17:00 07/06/18 05:45 Vancomycin (Pre-Docked) IVPB 166.667 mls/hr Q12H ROGER Administration Protocol Piperacillin Sod/Tazobactam 100 mls @ 200 mls/hr 07/05/18 10:45 07/06/18 09: 47 Sod 4.5 gm/ Dextrose IVPB 200 mls/hr Q8H-IV ROGER Administration Protocol Morphine Sulfate 2 mg 07/05/18 10:56 07/06/18 09:46 Morphine Sulfate IVPUSH 2 mg Q2H PRN Administration PAIN LEVEL 6-10 Ondansetron HCl 4 mg 07/05/18 21:31 Zofran Injection IVPUSH Q6H PRN NAUSEA AND/OR VOMITING Potassium Chloride 40 meq 07/06/18 12:30 K-Dur - PO 07/06/18 12:31 ONCE ONE Microbiology 07/05/18 04:33 Abscess Gram Stain - Final 07/05/18 04:33 Abscess Wound Culture - Preliminary Staphylococcus Coagulase Neg Group D Strep Or Entero Coccus Beta Hemolytic Strep 07/05/18 02:33 Urine - Urine Clean Catch Urine Culture - Final 07/05/18 03:20 Blood - Peripheral Venous Blood Culture - Preliminary NO GROWTH OBTAINED AFTER 24 HOURS, INCUBATION TO CONTINUE FOR 4 DAYS. 07/05/18 03:20 Blood - Peripheral Venous Blood Culture - Preliminary NO GROWTH OBTAINED AFTER 24 HOURS, INCUBATION TO CONTINUE FOR 4 DAYS. ASSESSMENT/PLAN: Problem List - Problems (1) Abscess of Bartholin's gland Assessment/Plan: * ID consulted - started on Vanco /Zosyn * SEDIMENTATIONIST consulted for OR today * IVF with LR @ 100ml /hr * Pain control 2mg Morphine Q2H * CT pelvis shows no fistula but extension to perineum . * Chlam/Raúl/Trich pending * Wound c/s pending * ESR elevated. Visit type - Emergency Visit Emergency Visit: Yes ED Registration Date: 07/05/18 Care time: The patient presented to the Emergency Department on the above date and was hospitalized for further evaluation of their emergent condition. - New Patient This patient is new to me today: No - Critical Care Critical Care patient: No
--- NOTE | 2018-07-06 12:43 | PN ---
Teaching Attending Note Name of Resident: Jung Chapman ATTENDING PHYSICIAN STATEMENT I saw and evaluated the patient. I reviewed the resident's note and discussed the case with the resident. I agree with the resident's findings and plan as documented. SUBJECTIVE: Ms Arreola says she is feeling slightly better today but still with pain. No cp, sob, n/v. OBJECTIVE: Gen: nad CV: rrr w/o m/r/g Pulm: ctab w/o w/r/r Abd: +bs s/nt/nd Ext: no c/c/e ASSESSMENT AND PLAN: -pelvic CT reviewed -gynecology seeing and planning for I&D -continue zosyn and vancomycin -decrease morphine to q4h prn -consider changing to oral pain medications soon Problem List - Problems (1) Abscess of Bartholin's gland Code(s): N75.1 - ABSCESS OF BARTHOLIN'S GLAND
[2018-07-06] MEDS ORDERED: LACTATED RINGERS SOLUTION 1,000 ML IV SCH (12:45)
[2018-07-06] MEDS ORDERED: PROPOFOL 20 ML ONE ×2 (13:45)
[2018-07-06] MEDS ORDERED: MIDAZOLAM HCL 2 MG/2 ML SINGLE DOSE VIAL ONE ×2 (13:45)
[2018-07-06] MEDS ORDERED: LIDOCAINE HCL/PF 2% SDV 5ML VIAL ONE (13:46)
[2018-07-06] MEDS ORDERED: LIDOCAINE HCL 1%, 10 MG/ML (20ML VIAL) ONE (14:41)
[2018-07-06] MEDS ORDERED: BUPIVACAINE HCL/PF 0.5% (5MG/ML) 10 ML VIAL ONE (14:41)
[2018-07-06] MEDS ORDERED: MORPHINE SULFATE 2 MG/ML VIAL IVPUSH PRN (15:13)
[2018-07-06] MEDS ORDERED: KETOROLAC TROMETHAMINE 30 MG/1 ML VIAL ONE (15:19)
--- NOTE | 2018-07-06 15:27 | CON.OBG ---
Consult Consult Specialty:: WORD PROCESSOR TECHNICIAN Reason for Consultation:: Bartholin abscess - History of Present Illness Chief Complaint: Perineal pain History of Present Illness: 28 yo female with PMH recurrent right labial abscess presents for 2 days pain in her right labia. She states she was seen most recently last month. At that time it was not drained, but was medically managed. She was told that if it recurred, she would need the entire gland removed surgically. She denies any fevers or chills. WORD PROCESSOR TECHNICIAN consulted I came to see patient, she admits to 6 previous episodes of bartholin abscess. She has had prior drainage. She states that this problem is affecting her life style and her job. She requests marsupilization of her bartholin abscess. - History Source History Provided By: Patient Limitations to Obtaining History: No Limitations - Past Medical History ...: No ...Para: 2 - Past Surgical History Past Surgical History: Yes: Additional Surgical History: tummy tuck 4 months ago in - Alcohol/Substance Use Hx Alcohol Use: No History of Substance Use: reports: None - Smoking History Smoking history: Never smoked Have you smoked in the past 12 months: No - Social History Usual Living Arrangement: With Significant Other ADL: Independent Occupation: works for [employer] History of Recent Travel: Yes ( 4 months ago-stayed one month) Home Medications - Allergies Allergies/Adverse Reactions: Allergies Allergy/AdvReac Type Severity Reaction Status Date / Time No Known Allergies Allergy Verified 10/22/17 14:18 - Home Medications Home Medications: Ambulatory Orders NK [No Known Home Medication] 07/05/18 Family Disease History - Family Disease History Family History: Unremarkable Review of Systems - Review of Systems Constitutional: denies: Chills, Fever Eyes: reports: No Symptoms HENT: reports: No Symptoms Cardiovascular: reports: No Symptoms Respiratory: reports: No Symptoms Gastrointestinal: reports: No Symptoms Genitourinary: reports: Pain Breasts: reports: No Symptoms Reported Integumentary: reports: No Symptoms Neurological: reports: No Symptoms Endocrine: reports: No Symptoms Hematology/Lymphatic: reports: No Symptoms Psychiatric: reports: No Symptoms Pain Intensity: 7 Physical Exam-WORD PROCESSOR TECHNICIAN Vital Signs: Vital Signs Temperature 98.4 F 07/06/18 10:00 Pulse Rate 100 H 07/06/18 10:00 Respiratory Rate 18 07/06/18 10:00 Blood Pressure 128/70 07/06/18 10:00 O2 Sat by Pulse Oximetry (%) 99 07/05/18 21:00 Constitutional: Yes: Well Nourished Eyes: Yes: Conjunctiva Clear HENT: Yes: Atraumatic Neck: Yes: Supple Cardiovascular: Yes: Regular Rate and Rhythm Respiratory: Yes: Regular Gastrointestinal: Yes: Normal Bowel Sounds External Genitalia: Yes: Tender, Other (Swollen right vulva) Vaginal Exam: Yes: Normal Cervix: Yes: Normal Uterus: Yes: Normal Neurological: Yes: Alert, Oriented ...Motor Strength: WNL Psychiatric: Yes: Alert, Oriented Labs: CBC, BMP 07/06/18 06:15 07/06/18 06:15 Problem List - Problems (1) Vulvar abscess Code(s): N76.4 - ABSCESS OF VULVA Assessment/Plan Right vulva abscess Pre op for drainage and marsupilization NPO Consent signed Anesthesia to see patient
--- NOTE | 2018-07-06 15:35 | OP ---
Operative Note - Note: Operative Date: 07/06/18 Pre-Operative Diagnosis: Bartholin abscess Operation: Marsupilization of right vulva abscess Post-Operative Diagnosis: Other (Right vulva abscess) Anesthesia: General Specimens Removed: None Estimated Blood Loss (mls): 20
[2018-07-06] MEDS ORDERED: ACETAMINOPHEN INJECTION 100 ML IVPB ONE (16:11)
[2018-07-06] MEDS: ACETAMINOPHEN 1000 MG/100 ML VIAL (NON FORMULARY) IVPB ONE ×2 (16:15→17:18)
[2018-07-06] MEDS: LACTATED RINGERS SOLUTION 1,000 ML IV SCH (17:12)
[2018-07-07] MEDS: MORPHINE SULFATE 2 MG/ML VIAL IVPUSH PRN ×3 (01:00→12:49)
[2018-07-07] MEDS: HEPARIN NA (PORCINE) 5,000 UNITS/ML 1ML VIAL SQ SCH ×3 (06:49→21:52)
[2018-07-07 08:51] LABS: ANION GAP 9 MMOL/L (8-16); BLOOD UREA NITROGEN 11 mg/dL (7-18); CALCIUM 8.6 mg/dL (8.5-10.1); CHLORIDE 107 mmol/L (98-107); CO2 24 mmol/L (21-32); CREATININE 0.9 mg/dL (0.55-1.3); GLUCOSE,RANDOM 83 mg/dL (74-106); POTASSIUM 4.1 mmol/L (3.5-5.1); SODIUM 140 mmol/L (136-145); TOT PROT 6.1 g/dl (6.4-8.2)
[2018-07-07 08:52] LABS: ALBUMIN 2.5 g/dl (3.4-5.0); ALK PHOS 108 U/L (45-117); BILIRUBIN,TOTAL 0.4 mg/dL (0.2-1); SGOT/AST 16 U/L (15-37); SGPT/ALT 16 U/L (13-61)
[2018-07-07 10:06] LABS: EOS % 0.1 % (0-4.5); HEMATOCRIT 30.2 % (32.4-45.2); LYMPH % 13.1 % (8-40); MCH 23.1 pg (25.7-33.7); MCHC 33.1 g/dl (32.0-36.0); MEAN CELL VOLUME 69.9 fl (80-96); MEAN PLT VOLUME 10.3 fl (7.5-11.1); MONO % 5.7 % (3.8-10.2); NEUT % 74.1 % (42.8-82.8); PLATELET COUNT 243 K/MM3 (134-434); RBC 4.32 M/mm3 (3.60-5.2); RDW 17.1 % (11.6-15.6); WHITE BLOOD COUNT 12.4 K/mm3 (4.0-10.0)
[2018-07-07] MEDS: ONDANSETRON 4 MG/2 ML VIAL IVPUSH PRN ×2 (10:25→20:16)
--- NOTE | 2018-07-07 12:59 | PN ---
Progress Note (short form) - Note Progress Note: Patient seen and re-evaluated. She c/o incision pain. She's afebrile. White count has decreased. Labial packing removed but patient refuses repacking. She's advised to see CHEMIST as outpatient for suture removal. Problem List - Problems (1) Vulvar abscess Code(s): N76.4 - ABSCESS OF VULVA
[2018-07-07] MEDS ORDERED: PT OWN MED DRAWER 7, Y5N ONE ×2 (13:23→17:17)
[2018-07-07] MEDS: AMPICILLIN NA/SULBACTAM NA 3 GM in SODIUM CHLORIDE 100 ML IVPB SCH ×2 (13:26→17:21)
--- NOTE | 2018-07-07 15:25 | PN ---
Progress Note (short form) - Note Progress Note: clinically improved s/p surgery yesterday c/o pain at incisional iste has an episode of vomiting afebrile Vital Signs Period Temp Pulse Resp BP Sys/Amador Pulse Ox Last 24 Hr 97.8 F-98.4 F 72-108 16-24 123-147/66-90 94-98 cor-rrr lungs clear abd soft,nt less swelling noted- packing removed by surgery CBC, BMP 07/07/18 06:15 07/07/18 06:15 Microbiology 07/05/18 04:33 Abscess Gram Stain - Final 07/05/18 04:33 Abscess Wound Culture - Preliminary Staphylococcus Coagulase Neg Enterococcus Faecalis Beta Hemolytic Strep 07/05/18 03:20 Blood - Peripheral Venous Blood Culture - Preliminary NO GROWTH OBTAINED AFTER 48 HOURS, INCUBATION TO CONTINUE FOR 3 DAYS. 07/05/18 03:20 Blood - Peripheral Venous Blood Culture - Preliminary NO GROWTH OBTAINED AFTER 48 HOURS, INCUBATION TO CONTINUE FOR 3 DAYS. 07/05/18 02:33 Urine - Urine Clean Catch Urine Culture - Final a/p management per gyne f/u operative cultures at present augmentin seems a reasonable choice for outpt antiibotics continue unasyn while inpatient d/w hospitalist Problem List - Problems (1) Fever Code(s): R50.9 - FEVER, UNSPECIFIED (2) Abscess of Bartholin's gland Code(s): N75.1 - ABSCESS OF BARTHOLIN'S GLAND (3) UTI (urinary tract infection) Code(s): N39.0 - URINARY TRACT INFECTION, SITE NOT SPECIFIED
--- NOTE | 2018-07-07 15:48 | PN ---
Teaching Attending Note Name of Resident: Jung Chapman ATTENDING PHYSICIAN STATEMENT I saw and evaluated the patient. I reviewed the resident's note and discussed the case with the resident. I agree with the resident's findings and plan as documented. SUBJECTIVE: No new complaints remained afebrile TWBC is trending down OBJECTIVE: Vital Signs Period Temp Pulse Resp BP Sys/Amador Pulse Ox Last 24 Hr 97.8 F-98.4 F 72-94 16-18 123-147/66-90 94-98 Young F not in distress HEENT: Mm moist, no anemia, PERRLA EOMI NECK: No JVD no Bruit CHEST: CTA B/L CVS: S1S2R ABD: No distenton non tender EXT: No Jose a feet Pulses + LABS: CBC, BMP 07/07/18 06:15 07/07/18 06:15 Active Medications Fentanyl (Sublimaze Injection -) 50 mcg IVPUSH [id number] PRN PRN Reason: PAIN-PACU ORDER X 4 DOSES ONLY Heparin Sodium (Porcine) (Heparin -) 5,000 unit SQ TID ROGER Last Admin: 07/07/18 13:32 Dose: 5,000 unit Lactated Ringer's (Lactated Ringers Solution) 1,000 mls @ 75 mls/hr IV ASDIR ROGER Last Admin: 07/06/18 17:12 Dose: Not Given Ampicillin Sodium/Sulbactam (Sodium 3 gm/ Sodium Chloride) 100 mls @ 200 mls/ hr IVPB Q8H-IV ROGER Last Admin: 07/07/18 13:26 Dose: 200 mls/hr Morphine Sulfate (Morphine Sulfate) 2 mg IVPUSH Q4H PRN PRN Reason: PAIN LEVEL 6-10 Last Admin: 07/07/18 12:49 Dose: 2 mg Ondansetron HCl (Zofran Injection) 4 mg IVPUSH Q4H PRN PRN Reason: NAUSEA AND/OR VOMITING Last Admin: 07/07/18 10:25 Dose: 4 mg Microbiology 07/06/18 14:59 Gram Stain - Final Abscess 07/06/18 14:58 Gram Stain - Final Abscess 07/05/18 04:33 Gram Stain - Final Abscess Wound Culture - Preliminary Staphylococcus Coagulase Neg Enterococcus Faecalis Beta Hemolytic Strep 07/05/18 03:20 Blood Culture - Preliminary Blood - Peripheral Venous NO GROWTH OBTAINED AFTER 48 HOURS, INCUBATION TO CONTINUE FOR 3 DAYS. 07/05/18 03:20 Blood Culture - Preliminary Blood - Peripheral Venous NO GROWTH OBTAINED AFTER 48 HOURS, INCUBATION TO CONTINUE FOR 3 DAYS. ASSESSMENT AND PLAN: 28 yrs old F recurrent Bartholin abscess underwent I and D responding to the therapy, GC is pending TWBC is trending down, gre Polymicrobial culture on Augmentin; I f ID agrees patient can be discharged home on PO abx F/U in OCP and [facility] clinic for stiched removal. Problem List - Problems (1) Vulvar abscess Code(s): N76.4 - ABSCESS OF VULVA (2) Fever Code(s): R50.9 - FEVER, UNSPECIFIED
[2018-07-07 15:52] LABS: ANISOCYTOSIS 2+; MACROCYTOSIS 0; PLATELET ESTIMATE NORMAL
[2018-07-07] MEDS ORDERED: ACETAMINOPHEN 325 MG TABLET (FP) PO PRN (16:01)
[2018-07-07] MEDS: oxyCODONE HCL 5 MG TABLET PO PRN (17:20)
[2018-07-07] MEDS: DOCUSATE SODIUM 100 MG CAPSULE (FP) PO SCH (21:52)
[2018-07-07] MEDS: LACTATED RINGERS SOLUTION 1,000 ML IV SCH (23:03)
[2018-07-08] MEDS: oxyCODONE HCL 5 MG TABLET PO PRN ×2 (00:13→08:07)
[2018-07-08] MEDS ORDERED: PT OWN MED DRAWER 7, Y5N ONE ×2 (00:55→10:32)
[2018-07-08] MEDS: AMPICILLIN NA/SULBACTAM NA 3 GM in SODIUM CHLORIDE 100 ML IVPB SCH ×2 (01:08→10:34)
[2018-07-08] MEDS: ONDANSETRON 4 MG/2 ML VIAL IVPUSH PRN ×2 (01:08→08:19)
[2018-07-08 05:18] VITALS: BP 147/82; PULSE 73; TEMP 98.3
[2018-07-08] MEDS: HEPARIN NA (PORCINE) 5,000 UNITS/ML 1ML VIAL SQ SCH ×2 (06:45→14:13)
[2018-07-08 09:46] LABS: BASO % 0.8 % (0-2.0); EOS % 2.1 % (0-4.5); HEMATOCRIT 31.2 % (32.4-45.2); HEMOGLOBIN 9.7 GM/dL (10.7-15.3); LYMPH % 39.6 % (8-40); MCH 21.7 pg (25.7-33.7); MCHC 30.9 g/dl (32.0-36.0); MEAN CELL VOLUME 70.3 fl (80-96); MEAN PLT VOLUME 9.1 fl (7.5-11.1); MONO % 9.4 % (3.8-10.2); NEUT % 48.1 % (42.8-82.8); PLATELET COUNT 249 K/MM3 (134-434); RBC 4.44 M/mm3 (3.60-5.2); RDW 17.2 % (11.6-15.6); WHITE BLOOD COUNT 8.6 K/mm3 (4.0-10.0)
--- NOTE | 2018-07-08 09:59 | PN ---
Teaching Attending Note Name of Resident: Jung Chapman ATTENDING PHYSICIAN STATEMENT I saw and evaluated the patient. I reviewed the resident's note and discussed the case with the resident. I agree with the resident's findings and plan as documented. SUBJECTIVE: No new complaints remained afebrile TWBC is trending down OBJECTIVE: Period Temp Pulse Resp BP Sys/Amador Pulse Ox Last 24 Hr 97.9 F-98.3 F 71-79 18-20 120-147/66-82 96 Young F not in distress HEENT: Mm moist, no anemia, PERRLA EOMI NECK: No JVD no Bruit CHEST: CTA B/L CVS: S1S2R ABD: No distention non tender EXT: No Edema feet Pulses + LABS: Active Medications Fentanyl (Sublimaze Injection -) 50 mcg IVPUSH [id number] PRN PRN Reason: PAIN-PACU ORDER X 4 DOSES ONLY Heparin Sodium (Porcine) (Heparin -) 5,000 unit SQ TID [facility] Last Admin: 07/07/18 13:32 Dose: 5,000 unit Lactated Ringer's (Lactated Ringers Solution) 1,000 mls @ 75 mls/hr IV ASDIR [facility] Last Admin: 07/06/18 17:12 Dose: Not Given Ampicillin Sodium/Sulbactam (Sodium 3 gm/ Sodium Chloride) 100 mls @ 200 mls/ hr IVPB Q8H-IV [facility] Last Admin: 07/07/18 13:26 Dose: 200 mls/hr Morphine Sulfate (Morphine Sulfate) 2 mg IVPUSH Q4H PRN PRN Reason: PAIN LEVEL 6-10 Last Admin: 07/07/18 12:49 Dose: 2 mg Ondansetron HCl (Zofran Injection) 4 mg IVPUSH Q4H PRN PRN Reason: NAUSEA AND/OR VOMITING Last Admin: 07/07/18 10:25 Dose: 4 mg ASSESSMENT AND PLAN: 28 yrs old F recurrent Bartholin abscess underwent I and D responding to the therapy, GC is pending TWBC is trending down, gre Polymicrobial culture on Augmentin; I f ID agrees patient can be discharged home F/U in OCP and DOCUMENTATION LIAISON clinic for stitches removal. Problem List - Problems (1) Vulvar abscess Code(s): N76.4 - ABSCESS OF VULVA (2) Fever Code(s): R50.9 - FEVER, UNSPECIFIED
[2018-07-08 10:09] LABS: ANION GAP 10 MMOL/L (8-16); BLOOD UREA NITROGEN 10 mg/dL (7-18); CALCIUM 8.1 mg/dL (8.5-10.1); CHLORIDE 106 mmol/L (98-107); CO2 26 mmol/L (21-32); CREATININE 0.9 mg/dL (0.55-1.3); GLUCOSE,RANDOM 85 mg/dL (74-106); POTASSIUM 3.2 mmol/L (3.5-5.1); SODIUM 142 mmol/L (136-145)
[2018-07-08] MEDS: DOCUSATE SODIUM 100 MG CAPSULE (FP) PO SCH (10:34)
[2018-07-08] MEDS ORDERED: POTASSIUM CHLORIDE TABS 20 MEQ TABLET.ER (FP) PO ONE (11:34)
--- NOTE | 2018-07-08 11:59 | DS ---
Physical Exam: SUBJECTIVE: Patient seen and examined at bedside. POD#2 s/p Bartholin Gland marcupilization. Continues with some nausea. Feels better overall. Denies CP,SHIPMAN , SOB, abdominal pain, palpitations, fever or chills. OBJECTIVE: Vital Signs Period Temp Pulse Resp BP Sys/Amador Pulse Ox Last 24 Hr 97.9 F-98.3 F 71-79 18-20 120-147/66-82 96-98 PHYSICAL EXAM GENERAL: A&O, no acute distress HEAD: Normocephalic, atraumatic. EYES: PERRL, no scleral icterus EARS, NOSE, THROAT: oropharynx clear without exudates. Moist mucous membranes. NECK: supple without lymphadenopathy LUNGS: CTA b/l, no crackles or wheezes HEART: Regular rate and rhythm, normal S1 and S2 without murmur ABDOMEN: Soft, nontender to palpation, normoactive bowel sounds : Right labial with stitches intact. Wound is open and appears clean/dry/ and intact. MUSCULOSKELETAL: No bony deformities or tenderness. EXTREMITIES: 2+ pulses, warm, well-perfused. No peripheral edema. NEUROLOGICAL: Cranial nerves II-XII grossly intact. Normal speech LABS Laboratory Results - last 24 hr 12/18 07/07/18 07/08/18 08:24 06:15 09:31 WBC 8.6 RBC 4.44 Hgb 9.7 L Hct 31.2 L MCV 70.3 L MCH 21.7 L MCHC 30.9 L RDW 17.2 H Plt Count 249 MPV 9.1 D Absolute Neuts (auto) 4.2 Neutrophils % 48.1 D Neutrophils % (Manual) 71.9 Band Neutrophils % 3.1 Lymphocytes % 39.6 D Lymphocytes % (Manual) 18.7 D Monocytes % 9.4 Monocytes % (Manual) 6 Eosinophils % 2.1 D Eosinophils % (Manual) 0.0 D Basophils % 0.8 Basophils % (Manual) 0.0 Myelocytes % (Man) 0 Promyelocytes % (Man) 0 Blast Cells % (Manual) 0 Nucleated RBC % 0 Metamyelocytes 0 Hypochromia 0 Platelet Estimate Normal Polychromasia 0 Poikilocytosis 2+ Anisocytosis 2+ Microcytosis 2+ Macrocytosis 0 Sodium Potassium Chloride Carbon Dioxide Anion Gap BUN Creatinine Creat Clearance w eGFR Random Glucose Calcium C. trachomatis (JOSÉ MIGUEL) Negative N.gonorrhoeae DNA (JOSÉ MIGUEL) Negative T. vaginalis (JOSÉ MIGUEL) Negative 07/08/18 09:31 WBC RBC Hgb Hct MCV MCH MCHC RDW Plt Count MPV Absolute Neuts (auto) Neutrophils % Neutrophils % (Manual) Band Neutrophils % Lymphocytes % Lymphocytes % (Manual) Monocytes % Monocytes % (Manual) Eosinophils % Eosinophils % (Manual) Basophils % Basophils % (Manual) Myelocytes % (Man) Promyelocytes % (Man) Blast Cells % (Manual) Nucleated RBC % Metamyelocytes Hypochromia Platelet Estimate Polychromasia Poikilocytosis Anisocytosis Microcytosis Macrocytosis Sodium 142 Potassium 3.2 L Chloride 106 Carbon Dioxide 26 Anion Gap 10 BUN 10 Creatinine 0.9 Creat Clearance w eGFR > 60 Random Glucose 85 Calcium 8.1 L C. trachomatis (JOSÉ MIGUEL) N.gonorrhoeae DNA (JOSÉ MIGUEL) T. vaginalis (JOSÉ MIGUEL) Microbiology 07/05/18 04:33 Abscess Gram Stain - Final 07/05/18 04:33 Abscess Wound Culture - Preliminary Staphylococcus Coagulase Neg Enterococcus Faecalis Beta Hem Streptococcus Group C 07/06/18 14:59 Abscess Gram Stain - Final 07/06/18 14:59 Abscess Wound Culture - Preliminary NO GROWTH OBTAINED AFTER 24 HOURS INCUBATION, REINCUBATED. 07/06/18 14:58 Abscess Gram Stain - Final 07/06/18 14:58 Abscess Wound Culture - Preliminary NO GROWTH OBTAINED AFTER 24 HOURS INCUBATION, REINCUBATED. 07/05/18 03:20 Blood - Peripheral Venous Blood Culture - Preliminary NO GROWTH OBTAINED AFTER 72 HOURS, INCUBATION TO CONTINUE FOR 2 DAYS. 07/05/18 03:20 Blood - Peripheral Venous Blood Culture - Preliminary NO GROWTH OBTAINED AFTER 72 HOURS, INCUBATION TO CONTINUE FOR 2 DAYS. 07/05/18 02:33 Urine - Urine Clean Catch Urine Culture - Final HOSPITAL COURSE: 28 yo female with PMH recurrent right labial abscess presents for 2 days pain in her right labia found to have recurrence of Bartholin Gland abscess. She wa evaluated by ID and DENIAL MANAGEMENT REPRESENTATIVE. Blood and abscess cultures were collected and she was started on broad spectrum antibiotics Vanco/Zosyn. STD testing was negative for t.vaginalis,G&C as well as HIV. DENIAL MANAGEMENT REPRESENTATIVE took patient to OR for Marsupilization of right vulva abscess.. She tolerated the procedure well. She will be given a prescription for 5 day course of Augmentin based on C&S of wound culture. Also will be given Zofran for nausea as well as 5 days worth of Percocet for pain control. She is instructed to keep wound clean and dry. She will follow up with DENIAL MANAGEMENT REPRESENTATIVE on 07/13/18 for suture removal. She is currently stable to discharge home. Instructed to return to ER if she develops worsening pain, fever or chills. Date of Admission:07/05/18 Date of Discharge: 07/08/18 Minutes to complete discharge: 32 Discharge Summary Reason For Visit: ABSCESS OF BARTHOLIN'S GLAND Current Active Problems Fever (Acute) UTI (urinary tract infection) (Acute) Vulvar abscess (Acute) Condition: Improved - Instructions Diet, Activity, Other Instructions: You have been seen and treated for Bartholin gland abscess. YOu will be given a 5 day course of Augmentin which is an Antibiotic. Also two other meds will be sent to your pharmacy one Percocet for pain and Zofran for nausea as needed. Please keep the area clean and dry. You will need to make an appointment for next Thursday07/13/18 to have stitches removed. Increase you activity as tolerated. Resume a regular diet. If you develop worsening pain, fever or chills please return to ER immediately. Referrals: Salinas Heller [Primary Care Provider] - Myriam Reynolds MD [Staff Physician] - 07/13/18 Disposition: HOME - Home Medications Comprehensive Discharge Medication List: Ambulatory Orders Amox-Tr/K Cl [Augmentin - 875Mg Tablet] 1 tab PO BID #10 tablet 07/08/18 Ondansetron HCl [Zofran] 4 mg PO PRN PRN #10 tablet 07/08/18 Oxycodone HCl/Acetaminophen [Percocet 5-325 mg Tablet] 1 tab PO Q6H #20 tablet MDD 4 07/08/18 Problem List - Problems (1) Abscess of Bartholin's gland This patient is new to me today: No Emergency Visit: Yes ED Registration Date: 07/05/18 Care time: The patient presented to the Emergency Department on the above date and was hospitalized for further evaluation of their emergent condition. Critical Care patient: No - Discharge Referral Referred to [facility] No
[2018-07-08] MEDS ORDERED: ONDANSETRON *ODT* 4 MG TABLET SL PRN (12:23)
== END 2018-07-08 14:39 | disposition home or self-care (01) | DRG 518 ==
LOC: JER 00:41 → JERBED 03:50 → J8W 15:43
PROVIDERS: ADMIT Internal Medicine; ATTEND Internal Medicine
PROC: 0U9M0ZZ Drainage of Vulva, Open Approach (ICD-10-PCS; principal; 2018-07-06 14:00)
DX: N76.4 Abscess of vulva (principal); N75.1 Abscess of Bartholin's gland; R00.0 Tachycardia, unspecified; N39.0 Urinary tract infection, site not specified; R50.9 Fever, unspecified
CPT/HCPCS: 36415; 72193-TC; 80048; 80053; 81003; 81015; 83605; 83735; 84100; 84702; 85025; 85027; 85651; 86850; 86900; 86901; 87040; 87070; 87086; 87186; 87205; 87389; 87491; 87591; 87661; 93005; 93010; 94760; 99285-25; J0131; J1644; J7030

== ENCOUNTER 2024-08-03 01:14 | Emergency (ER) | payer OTHER ==
[2024-08-03 01:28] VITALS: BP 132/79; PULSE 108; RESP 18; TEMP 99.3; BMI 29.0
[2024-08-03] MEDS ORDERED: ACETAMINOPHEN 325 MG TABLET (FP) ONE (02:57)
[2024-08-03] MEDS: ACETAMINOPHEN 325 MG TABLET (FP) PO ONE (03:04)
== END 2024-08-03 03:24 | disposition home or self-care (01) ==
LOC: JER 01:14
DX: J10.1 Influenza due to other identified influenza virus with other respiratory manifestations (principal); J06.9 Acute upper respiratory infection, unspecified; R09.81 Nasal congestion; R05.9 Cough, unspecified; R68.83 Chills (without fever)
CPT/HCPCS: 0241U-QW; 99283-25